=== PATIENT | male | born 1965 | race Caucasian/White ===

== ENCOUNTER → 2017-11-19 | Outpatient (CLI) | payer SELFPAY ==
--- NOTE | 2017-11-19 10:01 | XR ---
EXAMINATION TYPE: XR knee complete LT DATE OF EXAM: 11/19/2017 COMPARISON: NONE HISTORY: Pain TECHNIQUE: Four views are submitted. FINDINGS: Joint spaces are preserved. Osseous structures are intact. No acute fracture seen. Small amount of fluid in the suprapatellar bursa. IMPRESSION: 1. No acute fracture or dislocation. Small amount of fluid in the suprapatellar bursa. Correlate wit h MRI as clinically warranted.
== END | disposition home or self-care (01) ==
LOC: RADXRMAIN 09:41
PROVIDERS: ATTEND Physician Assistant
DX: M25.462 Effusion, left knee (principal)

== ENCOUNTER → 2021-02-28 | Outpatient (CLI) | payer OTHER ==
--- NOTE | 2021-02-28 14:57 | XR ---
EXAMINATION TYPE: XR chest 2V DATE OF EXAM: 02/28/2021 COMPARISON: Chest x-ray 08/29/2014 HISTORY: R06.00, shortness of breath TECHNIQUE: Frontal and lateral views of the chest are obtained. FINDINGS: There is no focal air space opacity, pleural effusion, or pneumothorax seen. The cardiac silhouette size is within normal limits. The osseous structures are intact. IMPRESSION: No acute cardiopulmonary process.
== END | disposition home or self-care (01) ==
LOC: RADXRMAIN 13:21
PROVIDERS: ATTEND Family Medicine
DX: R06.02 Shortness of breath (principal)
CPT/HCPCS: 71046

== ENCOUNTER 2021-08-24 02:44 | Observation (INO) | payer OTHER ==
--- NOTE | 2021-08-24 03:26 | XR ---
EXAMINATION TYPE: XR chest 2V DATE OF EXAM: 08/24/2021 COMPARISON: 02/28/2021 HISTORY: Chest pain TECHNIQUE: 2 views FINDINGS: Heart and mediastinum are normal. Lungs are clear. Diaphragm is normal. Bony thorax appears normal. IMPRESSION: Normal chest. No change.
[2021-08-24 03:35] LABS: Basophils # (A) 0.1 k/uL (0-0.2); Basophils % (A) 1 %; Eosinophils # (A) 0.3 k/uL (0-0.7); Eosinophils % (A) 3 %; HCT 43.1 % (39.0-53.0); HGB 15.4 gm/dL (13.0-17.5); Lymphocytes # (A) 2.1 k/uL (1.0-4.8); Lymphocytes % (A) 25 %; MCHC 35.7 g/dL (31.0-37.0); MCV 92.6 fL (80.0-100.0); Mean Platelet Volume 7.6; Monocytes # (A) 0.6 k/uL (0-1.0); Monocytes % (A) 7 %; Neutrophils # (A) 5.1 k/uL (1.3-7.7); Neutrophils % (A) 61 %; Platelet Count 240 k/uL (150-450); RBC 4.66 m/uL (4.30-5.90); RDW 12.7 % (11.5-15.5); WBC 8.3 k/uL (3.8-10.6)
[2021-08-24 03:40] LABS: Chloride 109 mmol/L (98-107); Potassium 4.1 mmol/L (3.5-5.1); Sodium 141 mmol/L (137-145)
[2021-08-24 03:41] LABS: ALT 54 U/L (4-49); AST 42 U/L (17-59); African American GFR (CKD) >90 (>60 ml/min/1.73 sqM); Albumin 4.3 g/dL (3.5-5.0); Alkaline Phosphatase 99 U/L (38-126); Anion Gap 13 mmol/L; Blood Urea Nitrogen 12 mg/dL (9-20); Calcium 9.4 mg/dL (8.4-10.2); Carbon Dioxide 19 mmol/L (22-30); Glucose 106 mg/dL (74-99); Magnesium 2.2 mg/dL (1.6-2.3); Non-African American GFR(CKD) >90 (>60 ml/min/1.73 sqM); Total Bilirubin 0.5 mg/dL (0.2-1.3); Total Protein 7.5 g/dL (6.3-8.2)
[2021-08-24 04:01] LABS: INR 0.9 (<1.2); Partial Thromboplastin Time 24.5 sec (22.0-30.0); Prothrombin Time 9.8 sec (9.0-12.0)
[2021-08-24] MEDS ORDERED: NITROGLYCERIN SL TABS 0.4 MG TAB SUBLINGUAL PRN (05:06)
[2021-08-24] MEDS ORDERED: MORPHINE SULFATE 4 MG/ML SYRINGE IV PRN (05:06)
[2021-08-24] MEDS ORDERED: HEPARIN SODIUM 1,000 UN/ML (10ML VL) IV ONE (05:06)
[2021-08-24] MEDS ORDERED: HEPARIN SOD,PORK IN 0.45% NACL 25,000 UNIT in 0.45% NACL 1 250ML.BAG IV SCH (05:15)
[2021-08-24] MEDS ORDERED: SODIUM CHLORIDE 0.9% 1,000 ML IV SCH (05:15)
[2021-08-24] MEDS ORDERED: ALBUTEROL NEBULIZED 2.5 MG/3 ML INHALATION PRN (06:06)
[2021-08-24] MEDS: NITROGLYCERIN OINT 1 INCH/GM PACKET TOPICAL SCH ×4 (06:56→23:22)
--- NOTE | 2021-08-24 07:07 | ED ---
Chest Pain HPI - General Chief Complaint: Chest Pain Stated Complaint: Chest Pain Time Seen by Provider: 08/24/21 02:46 Source: EMS Mode of arrival: EMS Limitations: no limitations - History of Present Illness Initial Comments: This patient is a 55-year-old man who presents with left arm pain that spread up his arm into the chest. Patient states that he has had a few episodes of this going back over the past 2 days. The patient's pain tonight was much more severe so he presents for evaluation. He did have some accompanying nausea. No fever or chills. No cough MD Complaint: chest pain Onset/Timin -: days(s) Pain Location: left chest Pain Radiation: LUE Severity: moderate Quality: aching Consistency: intermittent, now resolved Improves With: nothing Worsens With: nothing Anginal Symptoms: nausea Treatments Prior to Arrival: none - Related Data Home Medications Medication Instructions Recorded Confirmed Aspirin EC [Ecotrin Low Dose] 81 mg PO DAILY 08/24/21 08/24/21 Metoprolol Tartrate [Lopressor] 25 mg PO BID 08/24/21 08/24/21 lisinopriL [Zestril] 20 mg PO DAILY 08/24/21 08/24/21 Previous Rx's Medication Instructions Recorded Ezetimibe [Zetia] 10 mg PO DAILY 30 Days #30 tab 08/25/21 Nitroglycerin Sl Tabs [Nitrostat] 0.4 mg SUBLINGUAL Q5M PRN #25 tab 08/25/21 Prasugrel [Effient] 10 mg PO DAILY 30 Days #30 tab 08/25/21 Allergies Allergy/AdvReac Type Severity Reaction Status Date / Time No Known Allergies Allergy Verified 08/24/21 09:40 Review of Systems ROS Statement: Those systems with pertinent positive or pertinent negative responses have been documented in the HPI. ROS Other: All systems not noted in ROS Statement are negative. Constitutional: Denies: fever, chills, weakness Respiratory: Denies: cough, dyspnea, wheezes Cardiovascular: Reports: as per HPI, chest pain. Denies: palpitations, orthopnea, edema, syncope Gastrointestinal: Reports: nausea. Denies: abdominal pain, vomiting, diarrhea Genitourinary: Denies: dysuria, hematuria Musculoskeletal: Denies: back pain Skin: Denies: rash Neurological: Denies: headache, weakness, numbness EKG Findings - EKG Results: EKG: interpreted by KIRSTYD, sinus rhythm, normal axis, normal QRS, normal ST/T, no acute changes Past Medical History Past Medical History: Hyperlipidemia, Hypertension, Osteoarthritis (OA) Additional Past Medical History / Comment(s): SOB w/activity, head tremor History of Any Multi-Drug Resistant Organisms: None Reported Past Surgical History: Heart Catheterization With Stent, Orthopedic Surgery Additional Past Surgical History / Comment(s): 03-22-15 HEART CATH W/ STENT ,orbital fx. repair, hand surg. Past Anesthesia/Blood Transfusion Reactions: No Reported Reaction Date of Last Stent Placement:: 03-22-15 Past Psychological History: Depression Smoking Status: Former smoker Past Alcohol Use History: Occasional Past Drug Use History: Marijuana - Past Family History Mother Family Medical History: No Reported History General Exam Limitations: no limitations General appearance: alert, in no apparent distress Head exam: Present: atraumatic, normocephalic Eye exam: Present: normal appearance. Absent: scleral icterus, conjunctival injection ENT exam: Present: normal oropharynx Neck exam: Present: normal inspection, full ROM Respiratory exam: Present: normal lung sounds bilaterally. Absent: respiratory distress, wheezes, rales, rhonchi, stridor Cardiovascular Exam: Present: regular rate, normal rhythm, normal heart sounds. Absent: systolic murmur, diastolic murmur, rubs, gallop GI/Abdominal exam: Present: soft. Absent: distended, tenderness, guarding, rebound, rigid, mass Extremities exam: Present: normal inspection, normal capillary refill. Absent: pedal edema, calf tenderness Back exam: Present: normal inspection. Absent: CVA tenderness (R), CVA tenderness (L) Neurological exam: Present: alert Skin exam: Present: warm, dry, intact, normal color. Absent: rash Course Vital Signs 08/24/21 08/24/21 08/24/21 02:46 04:47 06:53 Temperature 97.6 F 98.6 F Pulse Rate 74 75 72 Respiratory 18 20 16 Rate Blood Pressure 151/103 129/94 136/89 O2 Sat by Pulse 95 97 95 Oximetry 08/24/21 08:49 Temperature 98.0 F Pulse Rate 80 Respiratory 16 Rate Blood Pressure 144/90 O2 Sat by Pulse 95 Oximetry Chest Pain MDM - MDM This patient is a 55-year-old man with previous CAD, who presents with episodes of left arm pain radiated into his chest over the past 2 days. On arrival he was symptom-free but he subsequently had an episode of pain here and is therefore started on heparin. Initial workup is negative. Critical Care Time Critical Care Time: Yes (30 minutes) Disposition Clinical Impression: Chest pain Disposition: ADMITTED IP TO THIS HOSP Condition: Fair
[2021-08-24] MEDS ORDERED: FENOFIBRATE 160 MG TAB PO SCH (07:30)
[2021-08-24] MEDS: PRASUGREL 10 MG TAB PO SCH (08:51)
[2021-08-24] MEDS ORDERED: LISINOPRIL-HCTZ 20-12.5 MG 1 EACH TAB PO SCH (09:00)
[2021-08-24] MEDS ORDERED: LIDOCAINE 1% INJ 10MG/ML (20 ML MDV) ONE (11:34)
[2021-08-24] MEDS ORDERED: .fentaNYL (PF) 50 MCG/ML 2 ML AMP ONE (11:36)
[2021-08-24] MEDS ORDERED: IV FLUID CONTINUATION 900 ML IV ONE (11:36)
[2021-08-24] MEDS ORDERED: ASPIRIN 325 MG TAB ONE (11:46)
[2021-08-24] MEDS ORDERED: ASPIRIN 325 MG TAB PO ONE (11:48)
[2021-08-24] MEDS ORDERED: .fentaNYL (PF) 50 MCG/ML 2 ML AMP IV ONE (11:57)
[2021-08-24] MEDS ORDERED: MIDAZOLAM 2 MG/2 ML VIAL IV ONE (11:57)
[2021-08-24] MEDS ORDERED: LIDOCAINE 1% INJ 10MG/ML (20 ML MDV) SQ ONE (11:59)
[2021-08-24] MEDS ORDERED: HEPARIN SODIUM 1,000 UN/ML (10ML VL) ONE (12:12)
--- NOTE | 2021-08-24 12:20 | CONS ---
CLAU wilkerson is a 55-year-old gentleman with history of coronary artery disease, status post angioplasty of LAD in 2015, and hypertension who presented to hospital complaining of chest pain. He describes it as a pressure, moderate to severe intensity at rest, associated with radiation to left arm. He came to hospital in the early hours of this morning was started on IV heparin, aspirin and nitro paste. He continues to have intermittent episodes of chest pain and left arm pain, especially with activity. Due to this, I advised him to undergo cardiac catheterization. His troponins are elevated at 0.05 and 0.07. Coronavirus test is negative. Hemoglobin is normal. Potassium is 4.1 and creatinine is 0.8. EKG shows sinus rhythm with nonspecific ST-T wave changes. The chest x-ray is normal. PAST MEDICAL HISTORY: Significant for coronary artery disease, status post angioplasty, hypertension. MEDICATIONS: Medications at home include aspirin, lisinopril, metoprolol. ALLERGIES: There are NO KNOWN DRUG ALLERGIES. FAMILY HISTORY: Negative for premature coronary artery disease. SOCIAL HISTORY: Negative for current smoking, EtOH abuse or drug abuse. REVIEW OF SYSTEMS: HEENT is unremarkable. CARDIAC: As described above. RESPIRATORY: Negative. GI: Negative. GENITOURINARY: Negative. ALLERGY/IMMUNOLOGY: Negative. SKIN: Negative. MUSCULOSKELETAL: Significant for arthritis. PSYCHOSOCIAL: Negative. ENDOCRINE: Negative. DERMATOLOGY: Negative. CONSTITUTIONAL: Negative. ONCOLOGICAL: Negative. MOBILE DESIGNER: Negative. Rest of the system review is not relevant. PHYSICAL EXAMINATION: Comfortable at rest. Vital signs are stable. There is no jugular venous distention. Carotid upstroke is normal. There is no bruit. Chest exam reveals diminished air entry at the bases. Heart exam reveals first and second heart sounds. No gallop. No murmur. Abdomen is soft, nontender. Examination of extremities did not reveal any edema. Peripheral pulses are felt. LABS: Potassium is 4.1, creatinine is 0.8. Troponins are negative. Hemoglobin is 15.4, platelet count is 240. ASSESSMENT: Acute non RZ-avgyxue-womprwrxq myocardial infarction. PLAN: Patient will undergo urgent catheterization with a view to performing angioplasty. MMODL / IJN: [id number] /
[2021-08-24] MEDS: HEPARIN SODIUM 1,000 UN/ML (10ML VL) IV ONE ×3 (12:24→13:22)
--- NOTE | 2021-08-24 12:50 | CC ---
CARDIAC CATHETERIZATION REPORT INDICATION: Acute djz-ZF-unjhdhd-elevation KS in a patient with known CAD, status post prior angioplasty of LAD. PROCEDURE NOTE: After obtaining informed consent, left heart catheterization and coronary angiogram were performed via the right femoral artery using standard Nicho catheters. The patient tolerated the procedure well without any obvious immediate complications. Patient received moderate conscious sedation. Total sedation time was 18 minutes. FINDINGS: HEMODYNAMICS: Left ventricular end-diastolic pressure is 14-16 mm. There is no significant gradient across the aortic valve. LEFT VENTRICULOGRAM: Left ventriculogram was not performed. ANGIOGRAPHIC DATA Left main coronary artery. Left main coronary artery is a normal-sized vessel and is free of stenosis. It divides into left anterior descending coronary artery and circumflex coronary artery. Circumflex coronary artery is a nondominant vessel and is free of stenosis. LAD was stented previously. While the stent itself is patent, proximal to the stent there is a 70% stenosis. Right coronary artery is a large dominant vessel that shows a focal 99% stenosis in the mid RCA. CONCLUSIONS: 1. Severe 99% stenosis involving mid RCA. 2. Stenosis of 70% proximal to the LAD stent. PLAN: Patient will undergo angioplasty of the right, and if it proceeds well, LAD angioplasty by Dr. Belén Fernandez, the on-call pastry cook apprentice. MMODL / IJN: [id number] /
[2021-08-24] MEDS ORDERED: PRASUGREL 10 MG TAB ONE ×2 (12:53)
[2021-08-24] MEDS ORDERED: PRASUGREL 10 MG TAB PO ONE (13:05)
[2021-08-24] MEDS ORDERED: IOPAMIDOL-370 125ML BTL INJ ONE (13:26)
[2021-08-24] MEDS: NITROGLYCERIN 1000MCG/10ML SYRINGE INTRACORON ONE ×2 (13:43→13:44)
[2021-08-24] MEDS ORDERED: HYDROmorphone 0.5 MG/0.5 ML SYRINGE IVP ONE (13:43)
[2021-08-24] MEDS ORDERED: IOPAMIDOL-370 100ML BTL INJ ONE (13:48)
[2021-08-24] MEDS ORDERED: RX INFO: IV CONTRAST WAS GIVEN 1 EACH MISC MISCELLANE PRN (14:32)
[2021-08-24] MEDS: SYMBICORT 160-4.5 MCG INHALER INHALATION SCH ×2 (15:44→19:11)
--- NOTE | 2021-08-24 17:02 | PTCA ---
PERCUTANEOUSTRANS CORORONARY ANGIOGRAPHY DATE OF SERVICE: 08/24/2021. PROCEDURE: 1. Percutaneous transluminal coronary angioplasty and stenting of mid right coronary artery, a heavily calcified vessel, with two drug-eluting stents. 2. Percutaneous transluminal coronary angioplasty and stenting of proximal LAD just proximal to the previously placed stent with a new drug-eluting stent. PERFORMED BY: Dr. Belén Fernandez. Moderate conscious sedation time was 87 minutes. Patient was administered Versed. Oxygen saturation, hemodynamics and EKG were monitored closely. CLINICAL INFORMATION: Mr. 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 He underwent stenting of proximal LAD performed by Dr. Garcia in 2015 with a 23 mm long 3.0 caliber drug-eluting stent. He came into the hospital with chest pain, had elevated troponin and a clinical picture of oym-PN-oyzhlxytd SC. He was advised cardiac cath after evaluation by Dr. Peoples. Study revealed that he had a 99% RCA stenosis _at____ the junction of proximal and middle one third, and prior to the stenosed area there was heavy calcification. He also had in the proximal LAD just proximal to the previous stent another 80% eccentric lesion best seen in the caudal projection. He was advised intervention that was performed in the same setting. PROCEDURE NOTE: Existing 6-Ukrainian introducer in the right femoral artery was used to perform the procedure. I used _ART____ 3.5 guide catheter to cannulate the right coronary artery. I advanced and placed a Whisper wire distally and tried to advance the balloon, but I had a lot of difficulty. A 2.5 caliber 12 mm balloon was advanced after one dilatation. The guide catheter position was suboptimal and I had a lot of difficulty getting back in because of a heavily calcified area in the proximal RCA proximal to the stenosis. I used a GuideLiner, and with this I was able to deploy the stent, which was a 3.5 caliber 23 mm long stent, in the proximal calcified area just before the lesion. After this I used another wire as a run-through wire, and over this run-through wire with the GuideLiner I deployed a 12 mm long 3.0 stent at the site of 99% stenosis with excellent result. I post-dilated the proximal stent with another 3.5 NC Trek balloon. Excellent angiographic result was achieved. The proximal calcified area prior to the 99% stenosis still had a very mild area of underexpansion; however, the flow was excellent and the site of 99% stenosis had a remarkably good result with good apposition of the stent angiographically. I then turned my attention to the LAD. Patient received additional units of intravenous heparin and his ACT was kept between 250 and 300. He also received 60 mg of prasugrel totally and also received aspirin in the ER. I then turned my attention to the LAD. A JL4 guide catheter was used to cannulate the left coronary artery. A run-through wire was used to cross the lesion. Without predilatation, a 12 mm long 3.25 caliber Xience stent was deployed at 14 atmospheres. This was then post-dilated with a 3.5 NC Trek balloon up to 13 atmospheres. Patient had chest pain and precordial ST elevation of significant pain was noted. He also had inferior ST elevation and chest pain with RCA dilatation. Excellent angiographic result without complication was achieved. The sheath was taken out and Angio-Seal device used to secure hemostasis and he was sent to the room in a stable condition. The results were discussed with the patient and his girlfriend, who was here. Patient's proximal RCA stent was rather difficult to open up, even at 3.5 caliber balloon. I discussed this with him and advised that he should be compliant with all his medications, with cessation of marijuana use, and Lipitor 80 mg was added along with dual antiplatelet therapy, beta leonel and lisinopril. Patient was sent to the telemetry unit. Excellent result was achieved without complication. MMYAYAL / RUKHSANAN: [id number] / SCOTT
[2021-08-24] MEDS: SODIUM CHLORIDE 0.9% 1,000 ML IV SCH (17:07)
[2021-08-24] MEDS: ATORVASTATIN 80 MG TAB PO SCH ×2 (17:07→20:45)
--- NOTE | 2021-08-24 18:21 | P.HPIM ---
History of Present Illness H&P Date: 08/24/21 Chief Complaint: Chest pain 55-year-old man with history of CAD who presents with left arm pain that spread up his arm into the chest. Patient states that he has had a few episodes of this going back over the past 2 days. The patient's pain tonight was much more severe so he presents for evaluation. He did have some accompanying nausea. No fever or chills. No cough On arrival to ED he was initially chest pain-free but subsequently had another episode which was not relieved with nitroglycerin; patient was started on IV heparin; initial troponin was 0.017 but subsequently trended up to 0.56 and 0.074; this was discussed with cardiology and they recommended taking patient to crown and bridge dental lab technician immediately Review of Systems REVIEW OF SYSTEMS: CONSTITUTIONAL: No fever, no malaise, no fatigue. HEENT: No recent visual problems or hearing problems. Denied any sore throat. CARDIOVASCULAR: No chest pain, orthopnea, PND, no palpitations, no syncope. PULMONARY: No shortness of breath, no cough, no hemoptysis. GASTROINTESTINAL: No diarrhea, no nausea, no vomiting, no abdominal pain. NEUROLOGICAL: No headaches, no weakness, no numbness. HEMATOLOGICAL: Denies any bleeding or petechiae. GENITOURINARY: Denies any burning micturition, frequency, or urgency. MUSCULOSKELETAL/RHEUMATOLOGICAL: Denies any joint pain, swelling, or any muscle pain. ENDOCRINE: Denies any polyuria or polydipsia. The rest of the 14-point review of systems is negative. Past Medical History Past Medical History: Hyperlipidemia, Hypertension, Osteoarthritis (OA) Additional Past Medical History / Comment(s): SOB w/activity, head tremor History of Any Multi-Drug Resistant Organisms: None Reported Past Surgical History: Heart Catheterization With Stent, Orthopedic Surgery Additional Past Surgical History / Comment(s): 03-22-15 HEART CATH W/ STENT ,orbital fx. repair, hand surg. Past Anesthesia/Blood Transfusion Reactions: No Reported Reaction Date of Last Stent Placement:: 03-22-15 Past Psychological History: Depression Smoking Status: Former smoker Past Alcohol Use History: Occasional Past Drug Use History: Marijuana - Past Family History Mother Family Medical History: No Reported History Medications and Allergies Home Medications Medication Instructions Recorded Confirmed Type Aspirin EC [Ecotrin Low Dose] 81 mg PO DAILY 08/24/21 08/24/21 History Metoprolol Tartrate [Lopressor] 25 mg PO BID 08/24/21 08/24/21 History lisinopriL [Zestril] 20 mg PO DAILY 08/24/21 08/24/21 History Allergies Allergy/AdvReac Type Severity Reaction Status Date / Time No Known Allergies Allergy Verified 08/24/21 09:40 Physical Exam Vitals: Vital Signs Temp Pulse Resp BP Pulse Ox 08/24/21 06:53 98.6 F 72 16 136/89 95 08/24/21 04:47 75 20 129/94 97 08/24/21 02:46 97.6 F 74 18 151/103 95 Intake and Output 08/23/21 08/24/21 08/24/21 22:59 06:59 14:59 Other: Weight 95.254 kg PHYSICAL EXAMINATION: GENERAL: The patient is alert and oriented x3, not in any acute distress. Well developed, well nourished. HEENT: Pupils are round and equally reacting to light. EOMI. No scleral icterus. No conjunctival pallor. Normocephalic, atraumatic. No pharyngeal erythema. No thyromegaly. CARDIOVASCULAR: S1 and S2 present. No murmurs, rubs, or gallops. PULMONARY: Chest is clear to auscultation, no wheezing or crackles. ABDOMEN: Soft, nontender, nondistended, normoactive bowel sounds. No palpable organomegaly. MUSCULOSKELETAL: No joint swelling or deformity. EXTREMITIES: No cyanosis, clubbing, or pedal edema. NEUROLOGICAL: Gross neurological examination did not reveal any focal deficits. SKIN: No rashes. Results CBC & Chem 7: 08/24/21 03:15 08/24/21 03:15 Labs: Abnormal Lab Results - Last 24 Hours (Table) 08/24/21 08/24/21 Range/Units 03:15 06:43 Chloride 109 H (98-107) mmol/L Carbon Dioxide 19 L (22-30) mmol/L Glucose 106 H (74-99) mg/dL ALT 54 H (4-49) U/L Troponin I 0.056 H* (0.000-0.034) ng/mL Assessment and Plan Assessment: 1. Chest pain/NSTEMI; we will trend and monitor troponin and EKG; continue with IV heparin per protocol; aspirin 81 mg daily; continue with home dose of beta blockers 2. Coronary artery disease; status post angioplasty; patient is currently on aspirin and metoprolol; not taking any statin therapy 3. Hypertension; continue with home dose of metoprolol 25 mg twice a day and lisinopril 20 mg daily DVT prophylaxis; SCDs/IV heparin CODE STATUS; full
[2021-08-24] MEDS: METOPROLOL TARTRATE 25 MG TAB PO SCH (20:45)
[2021-08-24] MEDS ORDERED: AMITRIPTYLINE HCL 25 MG TAB PO SCH (21:00)
[2021-08-25] MEDS: SODIUM CHLORIDE 0.9% 1,000 ML IV SCH (05:01)
[2021-08-25] MEDS: NITROGLYCERIN OINT 1 INCH/GM PACKET TOPICAL SCH ×2 (05:01→13:47)
[2021-08-25] MEDS: SYMBICORT 160-4.5 MCG INHALER INHALATION SCH (07:28)
[2021-08-25 07:48] LABS: Basophils % (A) 0 %; Eosinophils # (A) 0.2 k/uL (0-0.7); Eosinophils % (A) 2 %; HCT 41.9 % (39.0-53.0); HGB 14.5 gm/dL (13.0-17.5); Lymphocytes # (A) 1.9 k/uL (1.0-4.8); Lymphocytes % (A) 20 %; MCHC 34.7 g/dL (31.0-37.0); MCV 92.5 fL (80.0-100.0); Mean Platelet Volume 7.3; Monocytes # (A) 0.8 k/uL (0-1.0); Monocytes % (A) 8 %; Neutrophils # (A) 6.7 k/uL (1.3-7.7); Neutrophils % (A) 69 %; Platelet Count 227 k/uL (150-450); RBC 4.53 m/uL (4.30-5.90); RDW 12.1 % (11.5-15.5); WBC 9.7 k/uL (3.8-10.6)
[2021-08-25 08:02] LABS: African American GFR (CKD) >90 (>60 ml/min/1.73 sqM); Anion Gap 8 mmol/L; Blood Urea Nitrogen 12 mg/dL (9-20); Calcium 9.4 mg/dL (8.4-10.2); Carbon Dioxide 25 mmol/L (22-30); Chloride 105 mmol/L (98-107); Glucose 107 mg/dL (74-99); Non-African American GFR(CKD) >90 (>60 ml/min/1.73 sqM); Potassium 4.4 mmol/L (3.5-5.1); Sodium 138 mmol/L (137-145)
[2021-08-25] MEDS ORDERED: lisinopriL 20 MG TAB PO SCH (09:00)
[2021-08-25] MEDS ORDERED: ASPIRIN 325 MG TAB PO SCH (09:00)
[2021-08-25] MEDS ORDERED: ASPIRIN 81 MG PO SCH (09:00)
[2021-08-25 09:29] VITALS: BP 124/80; PULSE 67; RESP 18; TEMP 98
[2021-08-25] MEDS: METOPROLOL TARTRATE 25 MG TAB PO SCH (09:31)
[2021-08-25] MEDS: PRASUGREL 10 MG TAB PO SCH (09:31)
[2021-08-25] MEDS ORDERED: EZETIMIBE 10 MG TAB PO SCH (10:15)
[2021-08-25 11:25] LABS: Chol/HDL Ratio 8.31 Ratio; HDL Cholesterol 29.5 mg/dL (40.00-60.00); LDL Cholesterol,Calculated 153.9 mg/dL (0.0-131.0); VLDL Calculation 61.6 mg/dL (5.00-40.00)
--- NOTE | 2021-08-25 12:54 | P.PN ---
Subjective This is a 55-year-old male past medical history of hypertension, dyslipidemia, coronary artery disease status post PCI to LAD in 2014. Patient presented to the hospital on 08/24/2021 with complaints of chest pain. EKG revealed sinus rhythm with nonspecific STT wave changes. Troponins are elevated 0.05, 0.07. Patient underwent cardiac catheterization with Dr. Peoples which revealed 90% stenosis involving the mid RCA, stenosis of 70% proximal to LAD. Patient underwent PCI mid RCA 2 and PCI to proximal LAD with Dr. Fernandez on 08/24/21. Patient seen and examined at bedside with Dr. Garcia. Patient in no acute distress. Denies any chest pain, shortness of breath, lightheadedness or dizziness. Blood pressure is 124/80, heart rate 67, afebrile, maintaining saturations on room air. He's currently maintained on aspirin 81 mg daily, atorvastatin 80 mg nightly, lisinopril 20 mg daily, metoprolol tartrate 25 mg twice a day, Prasugrel 10 mg daily. Patient states he could not tolerate a statin due to weakness and back pain side effects. GENERAL: Well-appearing, well-nourished and in no acute distress. NECK: Supple without JVD or thyromegaly. LUNGS: Breath sounds clear to auscultation bilaterally. Respiration equal and unlabored. No wheezes, rales or rhonchi. HEART: Regular rate and rhythm without murmurs, rubs or gallops. S1 and S2 heard. EXTREMITIES: Normal range of motion, no edema. No clubbing or cyanosis. Peripheral pulses intact. SKIN: Right groin cath site clean dry intact no hematoma 2+ peripheral pulses ASSESSMENT NSTEMI s/p PCI to proximal LAD and mid RCA on 08/24/21 History of coronary artery disease status post PCI to LAD in 2014 Hypertension Dyslipidemia Intolerance to statin therapy PLAN Continue dual antiplatelet therapy with aspirin and Effient We'll discontinue atorvastatin and start Zetia 10 mg daily Continue lisinopril 20 mg daily and metoprolol tartrate 25 mg BID From cardiology perspective patient stable to be discharged home. Follow up with Dr. Garcia in 1 week. Nurse Practitioner note has been reviewed, I agree with a documented findings and plan of care. Patient was seen and examined. Objective - Vital Signs Vital signs: Vital Signs Temp 98 F 08/25/21 07:00 Pulse 67 08/25/21 07:00 Resp 18 08/25/21 07:00 BP 124/80 08/25/21 07:00 Pulse Ox 96 08/25/21 07:28 Intake & Output 08/24/21 08/25/21 08/25/21 18:59 06:59 18:59 Intake Total 351.344 630 Output Total 650 Balance 351.344 -20 Weight 95.254 kg Intake: IV 300 30 Invasive Line 2 30 Intake, IV Titration 51.344 600 Amount Heparin Sod,Pork in 0.45% 51.344 NaCl 25,000 unit In 0.45 % NaCl 1 250ml.bag @ 10.5 UNITS/KG/HR 10.002 mls/ hr IV .Q24H [facility] Rx#: [id number] Sodium Chloride 0.9% 1, 600 000 ml @ 75 mls/hr IV . [id number] [facility] Rx#:[id number] Output: Urine 650 Other: # Voids 1 - Labs CBC & Chem 7: 08/25/21 07:28 08/25/21 07:28 Labs: Abnormal Lab Results - Last 24 Hours (Table) 08/25/21 08/25/21 Range/Units 07:28 07:28 Glucose 107 H (74-99) mg/dL Triglycerides 308.00 H (0.00-149.00) mg/dL Cholesterol 245.00 H (0.00-200.00) mg/dL LDL Cholesterol, Calc 153.9 H (0.0-131.0) mg/dL VLDL Cholesterol, Calc 61.60 H (5.00-40.00) mg/dL HDL Cholesterol 29.50 L (40.00-60.00) mg/dL
--- NOTE | 2021-09-03 07:51 | P.DS ---
Providers Date of admission: 08/25/21 10:38 Expected date of discharge: 08/25/21 Attending physician: Riley Morton Consults: 08/24/21 05:06 Consult Physician Routine Consulting Provider: Abelardo Garcia Consult Reason/Comments: chest pain Do you want consulting provider notified?: Yes Primary care physician: Ilya [facility] Course: 55-year-old male past medical history of hypertension, dyslipidemia, coronary artery disease status post PCI to LAD in 2014. Patient presented to the hospital on 08/24/2021 with complaints of chest pain. EKG revealed sinus rhythm with nonspecific STT wave changes. Troponins are elevated 0.05, 0.07. Patient underwent cardiac catheterization with Dr. Peoples which revealed 90% stenosis involving the mid RCA, stenosis of 70% proximal to LAD. Patient underwent PCI mid RCA 2 and PCI to proximal LAD with Dr. Fernandez on 08/24/21. NSTEMI s/p PCI to proximal LAD and mid RCA on 08/24/21 History of coronary artery disease status post PCI to LAD in 2014 Hypertension Dyslipidemia Intolerance to statin therapy Patient evaluated by Cardiology with following recs; Continue dual antiplatelet therapy with aspirin and Effient We'll discontinue atorvastatin and start Zetia 10 mg daily Continue lisinopril 20 mg daily and metoprolol tartrate 25 mg BID From cardiology perspective patient stable to be discharged home. Patient Condition at Discharge: Fair Plan - Discharge Summary Discharge Rx Participant: Yes New Discharge Prescriptions: New Prasugrel [Effient] 10 mg PO DAILY 30 Days #30 tab Nitroglycerin Sl Tabs [Nitrostat] 0.4 mg SUBLINGUAL Q5M PRN #25 tab PRN Reason: Chest Pain Ezetimibe [Zetia] 10 mg PO DAILY 30 Days #30 tab Continue lisinopriL [Zestril] 20 mg PO DAILY Metoprolol Tartrate [Lopressor] 25 mg PO BID Aspirin EC [Ecotrin Low Dose] 81 mg PO DAILY Discharge Medication List Aspirin EC [Ecotrin Low Dose] 81 mg PO DAILY 08/24/21 [History] Metoprolol Tartrate [Lopressor] 25 mg PO BID 08/24/21 [History] lisinopriL [Zestril] 20 mg PO DAILY 08/24/21 [History] Ezetimibe [Zetia] 10 mg PO DAILY 30 Days #30 tab 08/25/21 [Rx] Nitroglycerin Sl Tabs [Nitrostat] 0.4 mg SUBLINGUAL Q5M PRN #25 tab 08/25/21 [Rx] Prasugrel [Effient] 10 mg PO DAILY 30 Days #30 tab 08/25/21 [Rx] Follow up Appointment(s)/Referral(s): Abelardo Garcia MD [STAFF PHYSICIAN] - 1 Week Ilya Barraza DO [Primary Care Provider] - 1 Week Patient Instructions/Handouts: Heart Catheterization (GEN) Discharge Disposition: HOME SELF-CARE
== END 2021-08-25 16:42 | disposition home or self-care (01) ==
LOC: EC 02:44 → 6NMEDSUR 05:06 → 3SCARD 10:34 → OBSVTOIN 08-25 10:38 → INTOOBSV 08-25 10:38 → UNDODISIN 08-25 16:42
PROVIDERS: ADMIT Hospitalist; ATTEND Hospitalist
PROC: 027035Z Dilation of Coronary Artery, One Artery with Two Drug-eluting Intraluminal Devices, Percutaneous Approach (ICD-10-PCS; principal; 2021-08-25)
PROC: 4A023N7 Measurement of Cardiac Sampling and Pressure, Left Heart, Percutaneous Approach (ICD-10-PCS; 2021-08-25)
PROC: B2111ZZ Fluoroscopy of Multiple Coronary Arteries using Low Osmolar Contrast (ICD-10-PCS; 2021-08-25)
DX: I21.4 Non-ST elevation (NSTEMI) myocardial infarction (principal); I25.10 Atherosclerotic heart disease of native coronary artery without angina pectoris; I10 Essential (primary) hypertension; E78.5 Hyperlipidemia, unspecified; M19.90 Unspecified osteoarthritis, unspecified site; R25.1 Tremor, unspecified; F32.A Depression, unspecified; Z20.822 Contact with and (suspected) exposure to COVID-19; Z79.02 Long term (current) use of antithrombotics/antiplatelets; Z79.82 Long term (current) use of aspirin; Z79.899 Other long term (current) drug therapy; Z88.8 Allergy status to other drugs, medicaments and biological substances; Z95.5 Presence of coronary angioplasty implant and graft; Z98.890 Other specified postprocedural states; Z87.891 Personal history of nicotine dependence
CPT/HCPCS: 96376; 96365; 96366; 99291; 36415; 94640 ×2; 94760; 93005; 93306; 93458; 80061; 80053; 80048; 83735; 84484; 85025 ×2; 85610; 85730; 87635; 71046; 99152; 99153 ×4; G0378 ×3; C9600; C1760; C1769 ×3; C1887 ×3; C1725 ×4; C1894; C1874 ×2; J2250; J2001; J3010; J1644 ×2; J1170; Q9967 ×2; 99285

== ENCOUNTER 2022-10-16 23:14 | Observation (INO) | payer OTHER ==
[2022-10-17 00:06] LABS: Basophils % (A) 0 %; Eosinophils # (A) 0.1 k/uL (0-0.7); Eosinophils % (A) 1 %; HCT 44.6 % (39.0-53.0); HGB 15.7 gm/dL (13.0-17.5); Lymphocytes # (A) 0.6 k/uL (1.0-4.8); Lymphocytes % (A) 7 %; MCH 31.9 pg (25.0-35.0); MCHC 35.2 g/dL (31.0-37.0); MCV 90.7 fL (80.0-100.0); Mean Platelet Volume 8.4; Monocytes # (A) 0.1 k/uL (0-1.0); Monocytes % (A) 1 %; Neutrophils # (A) 8.1 k/uL (1.3-7.7); Neutrophils % (A) 91 %; Platelet Count 195 k/uL (150-450); RBC 4.92 m/uL (4.30-5.90); RDW 12.4 % (11.5-15.5); WBC 8.9 k/uL (3.8-10.6)
--- NOTE | 2022-10-17 00:09 | XR ---
EXAMINATION TYPE: XR chest 2V DATE OF EXAM: 10/16/2022 COMPARISON: 08/24/2021 HISTORY: Chest pain TECHNIQUE: 2 views FINDINGS: There is no heart failure nor confluent pneumonic infiltrate. Costophrenic angles are clear . There are chest leads. Bony thorax is intact. IMPRESSION: No active cardiopulmonary disease.
[2022-10-17 00:14] LABS: INR 0.9 (<1.2); Partial Thromboplastin Time 26.8 sec (22.0-30.0); Prothrombin Time 10.1 sec (9.0-12.0)
[2022-10-17 00:26] LABS: ALT 44 U/L (4-49); AST 30 U/L (17-59); African American GFR (CKD) >90 (>60 ml/min/1.73 sqM); Albumin 4.5 g/dL (3.5-5.0); Alkaline Phosphatase 98 U/L (38-126); Anion Gap 13 mmol/L; Blood Urea Nitrogen 18 mg/dL (9-20); Calcium 9.3 mg/dL (8.4-10.2); Carbon Dioxide 19 mmol/L (22-30); Chloride 107 mmol/L (98-107); Glucose 225 mg/dL (74-99); Lipase 119 U/L (23-300); Magnesium 2.2 mg/dL (1.6-2.3); Non-African American GFR(CKD) >90 (>60 ml/min/1.73 sqM); Potassium 4.5 mmol/L (3.5-5.1); Sodium 139 mmol/L (137-145); Total Bilirubin 0.5 mg/dL (0.2-1.3); Total Protein 7.4 g/dL (6.3-8.2)
--- NOTE | 2022-10-17 00:48 | ED ---
Chest Pain HPI - General Chief Complaint: Chest Pain Stated Complaint: Chest Pain Source: patient Mode of arrival: ambulatory Limitations: no limitations - History of Present Illness Initial Comments: 56-year-old male with past medical history of atherosclerotic coronary artery disease status post 4 stents who presents to the emergency department with reported chest pain. States that 1 prior to hospital arrival he started having substernal chest pain with radiation into his left arm and left arm numbness. He states that he had eaten dinner with his and then returned home and was watching TV on the couch when the pain started. He states that the pain feels similar to when he had his previous heart attacks. He did take one nitro with alleviation of the pain. It then returned approximately 15 minutes later so he took a second nitro. The pain is completely resolved at this time. He has no associated shortness of breath, fevers, chills or cough. No ripping or tearing sensation to his back. He is supposed to take Effient as he had 3 stents placed in August of last year. States he's been out of this medication for approximately one month as he was not aware that he did not have refills. He denies any nausea or vomiting. No diaphoresis. No other alleviating, precipitating or modifying factors - Related Data Home Medications Medication Instructions Recorded Confirmed Aspirin EC [Ecotrin Low Dose] 81 mg PO DAILY 08/24/21 08/24/21 Metoprolol Tartrate [Lopressor] 25 mg PO BID 08/24/21 08/24/21 lisinopriL [Zestril] 20 mg PO DAILY 08/24/21 08/24/21 Previous Rx's Medication Instructions Recorded Ezetimibe [Zetia] 10 mg PO DAILY 30 Days #30 tab 08/25/21 Nitroglycerin Sl Tabs [Nitrostat] 0.4 mg SUBLINGUAL Q5M PRN #25 tab 08/25/21 Prasugrel [Effient] 10 mg PO DAILY 30 Days #30 tab 08/25/21 Allergies Allergy/AdvReac Type Severity Reaction Status Date / Time No Known Allergies Allergy Verified 10/16/22 23:24 Review of Systems ROS Statement: Those systems with pertinent positive or pertinent negative responses have been documented in the HPI. ROS Other: All systems not noted in ROS Statement are negative. EKG Findings - EKG Comments: EKG Findings:: EKG demonstrates sinus rhythm with a rate of 95. MN interval 182. QRS 94. QTC of 409. No acute ST segment elevations or depressions. EKG is interpreted by myself Past Medical History Past Medical History: Hyperlipidemia, Hypertension, Myocardial Infarction ([place]), Osteoarthritis (OA) Additional Past Medical History / Comment(s): SOB w/activity, head tremor History of Any Multi-Drug Resistant Organisms: None Reported Past Surgical History: Heart Catheterization With Stent, Orthopedic Surgery Additional Past Surgical History / Comment(s): 03-22-15 HEART CATH W/ STENT ,orbital fx. repair, hand surg. Past Anesthesia/Blood Transfusion Reactions: No Reported Reaction Date of Last Stent Placement:: 03-22-15 Past Psychological History: Depression Smoking Status: Former smoker Past Alcohol Use History: Occasional Past Drug Use History: Marijuana - Past Family History Mother Family Medical History: No Reported History General Exam Limitations: no limitations Course Vital Signs 10/16/22 10/16/22 10/17/22 23:21 23:36 01:11 Temperature 98.1 F 98.2 F 97.9 F Pulse Rate 98 92 90 Respiratory 22 16 16 Rate Blood Pressure 170/95 169/90 146/84 O2 Sat by Pulse 97 97 98 Oximetry Chest Pain MDM - MDM Upon arrival patient was placed into room 18. A thorough history and physical exam was performed. IV access was established laboratory studies are conducted. He is placed on continuous pulse ox and cardiac monitoring. A 12-lead EKG was obtained which demonstrates no signs of ST segment elevation at this time. EKG was interpreted by myself. Laboratory studies are reviewed and demonstrates a troponin of less than 0.012. It has not been 3 hours since the patient began having chest pain. Chest x-ray demonstrates no active cardio pulmonary disease. Results are discussed with the patient. As he has been off of his antiplate let and does have chest pain did recommend admission for cardiac consultation. I will trend the patient's troponins. He has remained pain-free throughout his stay in the emergency department. He was given an aspirin. Patient was agreeable to this plan and is currently awaiting a bed on the floor Disposition Clinical Impression: Chest pain Disposition: ADMITTED IP TO THIS HOSP Condition: Stable Is patient prescribed a controlled substance at d/c from ED?: No Referrals: Ilya Barraza DO [Primary Care Provider] - 1-2 days Time of Disposition: 02:12 Decision to Admit Reason: Admit from EC Decision Date: 10/17/22 Decision Time: 02:13
[2022-10-17] MEDS ORDERED: NALOXONE 0.4 MG/ML 1 ML VIAL IV PRN (02:13)
[2022-10-17] MEDS ORDERED: ASPIRIN 81 MG PO STA (02:29)
[2022-10-17 04:39] VITALS: RESP 18
--- NOTE | 2022-10-17 06:51 | P.HPIM ---
History of Present Illness H&P Date: 10/17/22 Chief Complaint: Chest pain 56-year-old male with coronary artery disease status post stents August 2021 Patient comes in reporting sudden onset left shoulder pain radiating to the left arm with some chest discomfort he rated it as 7-8 out of 10 started all of a sudden while resting doing nothing she felted like dull achy pain, not associated with any palpitations dizziness lightheadedness nausea vomiting profusely sweating or shortness of breath. He took a nitro pill and went away however it recurred after couple minutes for which she took another nitro and his suggested that he comes to the hospital for evaluation. Patient recalls that this was similar to what he experienced a year ago when he was diagnosed with coronary artery disease and had stents placed. Since then he's been taking Effient, for which she didn't get any new prescription and he's been out for about a month now. He reports that she's been in good health, he recently hurt his back and his been on bedrest for the past week yesterday he saw his primary care physician Dr. Barraza who gave him some shots in his back to help with the pain. Otherwise he denies any history of blood clots he denies any recent travel her hospital stay he denies any upper respiratory infection symptoms denies any nausea vomiting abdominal pain denies any changes in bowel or urinary habits EKG showed no acute ST changes troponins negative Review of Systems Pertinent positives as noted in HPI. All other systems were reviewed and are negative Past Medical History Past Medical History: Chest Pain / Angina, Hyperlipidemia, Hypertension, Myocardial Infarction ([place]), Osteoarthritis (OA) Additional Past Medical History / Comment(s): SOB w/activity, head tremor Last Myocardial Infarction Date:: 08/24/2021 History of Any Multi-Drug Resistant Organisms: None Reported Past Surgical History: Heart Catheterization With Stent, Orthopedic Surgery Additional Past Surgical History / Comment(s): 03-22-15 HEART CATH W/ STENTx1, 08/2021 x3 stents ,orbital fx. repair, hand surg. Past Anesthesia/Blood Transfusion Reactions: No Reported Reaction Date of Last Stent Placement:: 03-22-15 Past Psychological History: Depression Smoking Status: Former smoker Past Alcohol Use History: Heavy Past Drug Use History: Marijuana Additional Drug Use History / Comment(s): thc nightly to help with sleep - Past Family History Mother Family Medical History: Coronary Artery Disease (CAD) Medications and Allergies Home Medications Medication Instructions Recorded Confirmed Type Aspirin EC [Ecotrin Low Dose] 81 mg PO DAILY 08/24/21 08/24/21 History Metoprolol Tartrate [Lopressor] 25 mg PO BID 08/24/21 08/24/21 History lisinopriL [Zestril] 20 mg PO DAILY 08/24/21 08/24/21 History Ezetimibe [Zetia] 10 mg PO DAILY 30 Days #30 tab 08/25/21 Rx Nitroglycerin Sl Tabs [Nitrostat] 0.4 mg SUBLINGUAL Q5M PRN #25 tab 08/25/21 Rx Prasugrel [Effient] 10 mg PO DAILY 30 Days #30 tab 08/25/21 Rx Allergies Allergy/AdvReac Type Severity Reaction Status Date / Time No Known Allergies Allergy Verified 10/16/22 23:24 Physical Exam Vitals: Vital Signs Temp Pulse Pulse Resp BP BP Pulse Ox 10/17/22 03:35 97.3 F L 72 18 153/94 97 10/17/22 02:34 98 F 88 16 135/85 98 10/17/22 01:11 97.9 F 90 16 146/84 98 10/16/22 23:36 98.2 F 92 16 169/90 97 10/16/22 23:21 98.1 F 98 22 170/95 97 Intake and Output 10/16/22 10/16/22 10/17/22 14:59 22:59 06:59 Other: # Voids 2 Weight 95.254 kg Constitutional: No acute distress, conversant, pleasant Eyes: Anicteric sclerae, moist conjunctiva, Pupils equal round reactive to light ENMT: NC/AT Oropharynx clear, no erythema, or exudates Neck: Supple, no masses, or JVD No carotid bruits No thyromegaly Lungs: Clear to auscultation Clear to percussion Normal respiratory effort, no accessory muscle use Cardiovascular: Heart regular in rate and rhythm, No murmurs, gallops, or rubs No peripheral edema Abdominal: Soft Nontender, no guarding, rebound or rigidity Abdomen moving with respiration Normoactive bowel sounds No hepatomegaly, No splenomegaly No palpable mass No abdominal wall hernia noted Skin: Normal temperature, tone, texture, turgor No induration No subcutaneous nodules No rash, lesions No ulcers Extremities: No digital cyanosis No clubbing Pedal pulses intact and symmetrical Radial pulses intact and symmetrical No calf tenderness Psychiatric: Alert and oriented to person, place and time Appropriate affect fair judgement Neuro Muscles Strength 5/5 in all 4 extremities Sensation to light touch grossly present throughout Cranial nerves II-XII grossly intact No focal sensory deficits Lymphatics: no palpable cervical or supraclavicular , or inguinal lymph no celestine Results CBC & Chem 7: 10/16/22 23:46 10/16/22 23:46 Labs: Abnormal Lab Results - Last 24 Hours (Table) 10/16/22 10/16/22 Range/Units 23:46 23:46 Neutrophils # 8.1 H (1.3-7.7) k/uL Lymphocytes # 0.6 L (1.0-4.8) k/uL Carbon Dioxide 19 L (22-30) mmol/L Glucose 225 H (74-99) mg/dL Thrombosis Risk Factor Assmnt - Choose All That Apply Any of the Below Risk Factors Present?: Yes Each Factor Represents 1 point: Age 41-60 years, Obesity (BMI >25) Other Risk Factors: No Other congenital or acquired thrombophilia - If yes, enter type in comment: No Thrombosis Risk Factor Assessment Total Risk Factor Score: 2 Thrombosis Risk Factor Assessment Level: Low Risk Assessment and Plan Assessment: atypical chest pain rule out ACS EKG no acute changes CXR no acute pathology trops negative X2 site leasing agent monitor vital signs ASA, statin cardiology consult pain control Await cardiology recommendations regarding effient Chronic conditions Hypertension resume lisinopril and metoprolol Hyperlipidemia resume zetia DVT prophylaxis heparin subcu 3 times a day Full code
[2022-10-17 07:52] VITALS: BP 135/78; PULSE 89; TEMP 97.6
[2022-10-17] MEDS ORDERED: HEPARIN SODIUM,PORCINE/PF 5,000 UNIT/0.5 ML SYRINGE SQ SCH (08:00)
--- NOTE | 2022-10-17 08:43 | P.CRDCN ---
History of Present Illness Consult date: 10/17/22 Chief complaint: Chest pain History of present illness: The patient is a pleasant 56-year-old gentleman with a past medical history significant for CAD with prior stenting of the RCA and LAD as well as hypertension and dyslipidemia presented to the hospital complaining of chest discomfort. The patient was in his usual state of health until yesterday when he was sitting at home and suddenly started experiencing discomfort in the left upper chest as a sharp kind of discomfort radiated to his left arm. No associated symptoms of shortness of breath or sweating or dizziness or lightheaded this or presyncope or syncope or any feeling of heart racing or fluttering. The discomfort lasted for few minutes and resolved. He took nitroglycerin before it was resolved. The discomfort according to him is totally different from what he had before he underwent stenting a year ago. He was ruled out for acute coronary event. The EKG showed sinus rhythm with no significant ST or T-wave abnormalities. The chest x-ray did not show any acute abnormalities as well. He is chest pain-free. He would like to go home. From a perivascular standpoint of view, I'm going to get the patient up and around and physically active and if he is asymptomatic he potentially can be discharged home and I will see him in the office in a few days for possible stenosis as an outpatient. Past Medical History Past Medical History: Chest Pain / Angina, Hyperlipidemia, Hypertension, Myocardial Infarction ([place]), Osteoarthritis (OA) Additional Past Medical History / Comment(s): SOB w/activity, head tremor Last Myocardial Infarction Date:: 08/24/2021 History of Any Multi-Drug Resistant Organisms: None Reported Past Surgical History: Heart Catheterization With Stent, Orthopedic Surgery Additional Past Surgical History / Comment(s): 03-22-15 HEART CATH W/ STENTx1, 08/2021 x3 stents ,orbital fx. repair, hand surg. Past Anesthesia/Blood Transfusion Reactions: No Reported Reaction Date of Last Stent Placement:: 03-22-15 Past Psychological History: Depression Smoking Status: Former smoker Past Alcohol Use History: Heavy Past Drug Use History: Marijuana Additional Drug Use History / Comment(s): thc nightly to help with sleep - Past Family History Mother Family Medical History: Coronary Artery Disease (CAD) Medications and Allergies Home Medications Medication Instructions Recorded Confirmed Type Aspirin EC [Ecotrin Low Dose] 81 mg PO DAILY 08/24/21 08/24/21 History Metoprolol Tartrate [Lopressor] 25 mg PO BID 08/24/21 08/24/21 History lisinopriL [Zestril] 20 mg PO DAILY 08/24/21 08/24/21 History Ezetimibe [Zetia] 10 mg PO DAILY 30 Days #30 tab 08/25/21 Rx Nitroglycerin Sl Tabs [Nitrostat] 0.4 mg SUBLINGUAL Q5M PRN #25 tab 08/25/21 Rx Prasugrel [Effient] 10 mg PO DAILY 30 Days #30 tab 08/25/21 Rx Allergies Allergy/AdvReac Type Severity Reaction Status Date / Time No Known Allergies Allergy Verified 10/16/22 23:24 Physical Exam Vitals: Vital Signs Temp Pulse Pulse Resp BP BP Pulse Ox 10/17/22 07:00 97.6 F 89 18 135/78 97 10/17/22 03:35 97.3 F L 72 18 153/94 97 10/17/22 02:34 98 F 88 16 135/85 98 10/17/22 01:11 97.9 F 90 16 146/84 98 10/16/22 23:36 98.2 F 92 16 169/90 97 10/16/22 23:21 98.1 F 98 22 170/95 97 Intake and Output 10/16/22 10/17/22 10/17/22 22:59 06:59 14:59 Other: # Voids 2 Weight 95.254 kg - Constitutional General appearance: no acute distress - Respiratory Respiratory: bilateral: CTA - Cardiovascular Rhythm: regular Heart sounds: normal: S1, S2 Results 10/16/22 23:46 10/16/22 23:46 Cardiac Enzymes 10/16/22 10/16/22 10/17/22 Range/Units 23:46 23:46 04:25 AST 30 (17-59) U/L Troponin I <0.012 <0.012 (0.000-0.034) ng/mL 10/17/22 Range/Units 07:17 AST (17-59) U/L Troponin I <0.012 (0.000-0.034) ng/mL Coagulation 10/16/22 Range/Units 23:46 PT 10.1 (9.0-12.0) sec APTT 26.8 (22.0-30.0) sec CBC 10/16/22 Range/Units 23:46 WBC 8.9 (3.8-10.6) k/uL RBC 4.92 (4.30-5.90) m/uL Hgb 15.7 (13.0-17.5) gm/dL Hct 44.6 (39.0-53.0) % Plt Count 195 (150-450) k/uL Comprehensive Metabolic Panel 10/16/22 Range/Units 23:46 Sodium 139 (137-145) mmol/L Potassium 4.5 (3.5-5.1) mmol/L Chloride 107 (98-107) mmol/L Carbon Dioxide 19 L (22-30) mmol/L BUN 18 (9-20) mg/dL Creatinine 0.81 (0.66-1.25) mg/dL Glucose 225 H (74-99) mg/dL Calcium 9.3 (8.4-10.2) mg/dL AST 30 (17-59) U/L ALT 44 (4-49) U/L Alkaline Phosphatase 98 (38-126) U/L Total Protein 7.4 (6.3-8.2) g/dL Albumin 4.5 (3.5-5.0) g/dL Current Medications Generic Name Dose Route Start Last Admin Trade Name Freq PRN Reason Stop Dose Admin Aspirin 81 mg 10/17/22 09:00 Aspirin 81 Mg PO DAILY [facility] Ezetimibe 10 mg 10/17/22 09:00 Ezetimibe 10 Mg Tab PO DAILY [facility] Heparin Sodium (Porcine) 5,000 unit 10/17/22 08:00 Heparin Sodium,Porcine/Pf 5,000 Unit/0.5 Ml Syringe SQ Q8HR [facility] Lisinopril 20 mg 10/17/22 09:00 Lisinopril 20 Mg Tab PO DAILY [facility] Metoprolol Tartrate 25 mg 10/17/22 09:00 Metoprolol Tartrate 25 Mg Tab PO BID [facility] Naloxone HCl 0.2 mg 10/17/22 02:13 Naloxone 0.4 Mg/Ml 1 Ml Vial IV Q2M PRN Opioid Reversal Intake and Output 10/16/22 10/17/22 10/17/22 22:59 06:59 14:59 Other: # Voids 2 Weight 95.254 kg 10/16/22 23:46 10/16/22 23:46 Assessment and Plan Assessment: Assessment Atypical/noncardiac chest pain CAD with prior stenting Hypertension Dyslipidemia Plan Continue the current medical regimen Try to get the patient physically active and he is asymptomatic he can be discharged home Follow-up with the patient as an outpatient
[2022-10-17] MEDS ORDERED: EZETIMIBE 10 MG TAB PO SCH (09:00)
[2022-10-17] MEDS ORDERED: ASPIRIN 81 MG PO SCH (09:00)
[2022-10-17] MEDS ORDERED: METOPROLOL TARTRATE 25 MG TAB PO SCH (09:00)
[2022-10-17] MEDS ORDERED: lisinopriL 20 MG TAB PO SCH (09:00)
--- NOTE | 2022-10-17 12:51 | P.DS ---
Providers Date of admission: 10/17/22 02:29 Expected date of discharge: 10/17/22 Attending physician: Edilberto Small MD Consults: 10/17/22 02:13 Consult Physician Urgent Consulting Provider: [facility] Consult Reason/Comments: acute chest pain, hx ascad Do you want consulting provider notified?: Yes Primary care physician: Ilya [facility] Course: Atypical chest pain Hypertension Hyperlipidemia 56-year-old man with medical history of hypertension, hyperlipidemia presented with atypical chest pain. In the emergency room, patient is afebrile, 170/95, heart rate 98, 97% on room air. CBC was unremarkable. Chemistries were unremarkable. Liver function tests were unremarkable. Troponin was less than 0.012 and trended to be less than 0.0123. Coags were unremarkable. EKG showed normal sinus rhythm. Chest x-ray showed no acute process. Patient was seen in consultation by cardiology, and expressed that he wanted to go home without any further workup. Patient was cleared by cardiology to follow-up in clinic. Patient was subsequently discharged with no medication changes as well as instructions to follow-up with primary care physician as well as cardiology. Gen: awake, alert HEENT: normocephalic, atraumatic, good hearing acuity, moist mucous membranes Resp: good air exchange, breathing comfortably with no accessory muscle use CVS: good distal perfusion x 4, GI: soft, NTTP, ND : no SPT, no CVAT, myles catheter not present MSK: no pitting edema, no clubbing Neuro: non-focal, moving all extremities Psych: cooperative, euthymic mood Patient Condition at Discharge: Good Plan - Discharge Summary New Discharge Prescriptions: Continue Nitroglycerin Sl Tabs [Nitrostat] 0.4 mg SL Q5M PRN PRN Reason: Chest Pain lisinopriL [Zestril] 20 mg PO DAILY Metoprolol Tartrate [Lopressor] 25 mg PO BID Aspirin EC [Ecotrin Low Dose] 81 mg PO DAILY Prasugrel [Effient] 10 mg PO DAILY 30 Days #30 tab Ezetimibe [Zetia] 10 mg PO DAILY 30 Days #30 tab Discharge Medication List Aspirin EC [Ecotrin Low Dose] 81 mg PO DAILY 08/24/21 [History] Metoprolol Tartrate [Lopressor] 25 mg PO BID 10/17/21 [History] lisinopriL [Zestril] 20 mg PO DAILY 08/24/21 [History] Ezetimibe [Zetia] 10 mg PO DAILY 30 Days #30 tab 08/25/21 [Rx] Prasugrel [Effient] 10 mg PO DAILY 30 Days #30 tab 08/25/21 [Rx] Nitroglycerin Sl Tabs [Nitrostat] 0.4 mg SL Q5M PRN 10/17/22 [History] Follow up Appointment(s)/Referral(s): Abelardo Garcia MD [STAFF PHYSICIAN] - 1 Week Ilya Barraza DO [Primary Care Provider] - 1-2 days Discharge Disposition: HOME SELF-CARE
== END 2022-10-17 13:20 | disposition home or self-care (01) ==
LOC: EC 23:14 → 6NMEDSUR 10-17 02:29
PROVIDERS: ADMIT Internal Medicine; ATTEND Internal Medicine
DX: R07.89 Other chest pain (principal); I25.10 Atherosclerotic heart disease of native coronary artery without angina pectoris; I10 Essential (primary) hypertension; E78.5 Hyperlipidemia, unspecified; M19.90 Unspecified osteoarthritis, unspecified site; F32.A Depression, unspecified; I25.2 Old myocardial infarction; Z87.891 Personal history of nicotine dependence; Z95.5 Presence of coronary angioplasty implant and graft; Z79.02 Long term (current) use of antithrombotics/antiplatelets; Z79.82 Long term (current) use of aspirin; Z79.899 Other long term (current) drug therapy; Z82.49 Family history of ischemic heart disease and other diseases of the circulatory system
CPT/HCPCS: 99285; 36415; 93005; 83880; 80053; 83690; 83735; 84484 ×2; 85025; 85610; 85730; 71046; G0378

== ENCOUNTER 2023-02-06 09:41 | Inpatient (IN) | payer OTHER ==
[2023-02-06] MEDS ORDERED: SODIUM CHLORIDE 0.9% 500 ML 500 ML IV STA (09:47)
[2023-02-06] MEDS ORDERED: NITROGLYCERIN-D5W PMX 50 MG in DEXTROSE/WATER 1 250ML.BAG IV ONE (09:47)
[2023-02-06] MEDS ORDERED: HEPARIN SODIUM 1,000 UN/ML (10ML VL) IV ONE (09:47)
[2023-02-06] MEDS ORDERED: MORPHINE SULFATE 2 MG/ML SYRINGE IVP STA (09:52)
[2023-02-06] MEDS ORDERED: VERAPAMIL 2.5 MG/ML 2 ML AMP ONE (09:54)
[2023-02-06] MEDS ORDERED: LIDOCAINE 1% INJ 10MG/ML (20 ML MDV) ONE (09:54)
--- NOTE | 2023-02-06 09:57 | ED ---
General Adult HPI - General Stated complaint: STEMI Time Seen by Provider: 02/06/23 09:41 Source: patient, EMS, RN notes reviewed, old records reviewed - History of Present Illness Initial comments: This is a 57-year-old male who presented to the emergency department with chest pain. Patient was in route for over 20 minutes EKG was transmitted early to us and we called a STEMI overhead. Patient stated the pain started earlier in the day he stated that he had a heart attack in the past and had multiple stent placements. Patient states he has a history of high blood pressure high cholesterol. Patient states the pain significantly causes shortness of breath per patient got nitroglycerin on the way and it did not relieve his pain. Patient also was somewhat diaphoretic. Patient was nauseous on the windshield Zofran. On the way and he also had aspirin and fentanyl. Patient states the pain continues at this time. Patient denies any recent fever chills or cough per patient denies any abdominal pain. - Related Data Home Medications Medication Instructions Recorded Confirmed Aspirin EC [Ecotrin Low Dose] 81 mg PO DAILY 08/24/21 10/17/22 Metoprolol Tartrate [Lopressor] 25 mg PO BID 08/24/21 10/17/22 lisinopriL [Zestril] 20 mg PO DAILY 08/24/21 10/17/22 Nitroglycerin Sl Tabs [Nitrostat] 0.4 mg SL Q5M PRN 10/17/22 10/17/22 Previous Rx's Medication Instructions Recorded Ezetimibe [Zetia] 10 mg PO DAILY 30 Days #30 tab 08/25/21 Prasugrel [Effient] 10 mg PO DAILY 30 Days #30 tab 08/25/21 Allergies Allergy/AdvReac Type Severity Reaction Status Date / Time No Known Allergies Allergy Verified 10/17/22 11:50 Review of Systems ROS Statement: Those systems with pertinent positive or pertinent negative responses have been documented in the HPI. ROS Other: All systems not noted in ROS Statement are negative. Past Medical History Past Medical History: Hyperlipidemia, Hypertension, Myocardial Infarction ([place]), Osteoarthritis (OA) Additional Past Medical History / Comment(s): SOB w/activity, head tremor Last Myocardial Infarction Date:: 08/24/2021 History of Any Multi-Drug Resistant Organisms: None Reported Past Surgical History: Heart Catheterization With Stent, Orthopedic Surgery Additional Past Surgical History / Comment(s): 03-22-15 HEART CATH W/ STENT ,o rbital fx. repair, hand surg. Past Anesthesia/Blood Transfusion Reactions: No Reported Reaction Date of Last Stent Placement:: 03-22-15 Past Psychological History: Depression Smoking Status: Former smoker Past Alcohol Use History: Occasional Past Drug Use History: Marijuana - Past Family History Mother Family Medical History: No Reported History General Exam - General Exam Comments Initial Comments: GENERAL: Patient is well-developed and well-nourished. Patient is nontoxic and well- hydrated and is in moderate distress. ENT: Neck is soft and supple. No significant lymphadenopathy is noted. Oropharynx is clear. Moist mucous membranes. Neck has full range of motion without eliciting any pain. EYES: The sclera were anicteric and conjunctiva were pink and moist. Extraocular movements were intact and pupils were equal round and reactive to light. Eyelids were unremarkable. PULMONARY: Unlabored respirations. Good breath sounds bilaterally. No audible rales rhonchi or wheezing was noted. CARDIOVASCULAR: There is a regular rate and rhythm without any murmurs gallops or rubs. ABDOMEN: Soft and nontender with normal bowel sounds. No palpable organomegaly was noted. There is no palpable pulsatile mass. SKIN: Skin is clear with no lesions or rashes and otherwise unremarkable. NEUROLOGIC: Patient is alert and oriented x3. Cranial nerves II through XII are grossly intact. Motor and sensory are also intact. Normal speech, volume and content. Symmetrical smile. MUSCULOSKELETAL: Normal extremities with adequate strength and full range of motion. LYMPHATICS: No significant lymphadenopathy is noted PSYCHIATRIC: Normal psychiatric evaluation. Medical Decision Making - Medical Decision Making EKG was interpreted by myself shows a sinus rhythm at 74 bpm AR interval 106 QRS is 86 QT interval 371 QTC is 398. Patient's EKG shows ST segment elevation in leads 1-3 and aVF as well as V4 V5 and V6. Patient has ST segment depression in 1 to an aVR. This is indicative of acute [place]. Was pt. sent in by a medical professional or institution (, PA, VACUUM CLEANER ASSEMBLER, urgent care, hospital, or penitentiary...) When possible be specific @ -No Did you speak to anyone other than the patient for history (EMS, parent, family, police, friend...)? What history was obtained from this source @ -EMS gave quite a bit of the history Did you review nursing and triage notes (agree or disagree)? Why? @ -I reviewed and agree with nursing and triage notes Were old charts reviewed (outside hosp., previous admission, EMS record, old EKG, old radiological studies, urgent care reports/EKG's, penitentiary records)? Report findings @ -I reviewed prior EKGs prior lab work and compared to today's results Differential Diagnosis (chest pain, altered mental status, abdominal pain women, abdominal pain men, vaginal bleeding, weakness, fever, dyspnea, syncope, headache, dizziness, GI bleed, back pain, seizure, CVA, palpatations, mental health, musculoskeletal)? @ -Differential Chest Pain: Stable Angina, Unstable Angina, STEMI, NSTEMI Aortic Dissection, Pneumothorax, Musculoskeletal, Esophageal Spasm GERD, Cholecystitis, Pancreatitis, Zoster, this is not meant to be an all-inclusive list. EKG interpreted by me (3pts min.). @ -As above X-rays interpreted by me (1pt min.). @ -None done CT interpreted by me (1pt min.). @ -None done U/S interpreted by me (1pt. min.). @ -None done What testing was considered but not performed or refused? (CT, X-rays, U/S, labs)? Why? @ -None What meds were considered but not given or refused? Why? @ -None Did you discuss the management of the patient with other professionals (professionals i.e. , PA, VACUUM CLEANER ASSEMBLER, lab, RT, psych nurse, social media intern, shot fireman, teacher, district fire management officer, director of casework department)? Give summary @ -I spoke with Dr. Cosme prior to the patient's arrival and once the patient arrived he was done the emergency department seeing the patient. Was smoking cessation discussed for >3mins.? @ -No Was critical care preformed (if so, how long)? @ -30 minutes Were there social determinants of health that impacted care today? How? (Homelessness, low income, unemployed, alcoholism, drug addiction, transportation, low edu. Level, literacy, decrease access to med. care, group home, rehab)? @ -No Was there de-escalation of care discussed even if they declined (Discuss DNR or withdrawal of care, Hospice)? DNR status @ -No What co-morbidities impacted this encounter? (DM, HTN, Smoking, COPD, CAD, Cancer, CVA, ARF, Chemo, Hep., AIDS, mental health diagnosis, sleep apnea, morbid obesity)? @ -None Was patient admitted / discharged? Hospital course, mention meds given and route, prescriptions, significant lab abnormalities, going to OR and other pertinent info. @ -Patient came in with significant chest pain and an obvious STEMI on the EKG. Dr. Cosme was down into the emergency department seeing the patient quickly. Patient was given heparin and morphine for the pain. I also ordered a nitroglycerin drip and a fluid bolus however patient went up to the catheter prior to receiving those. I wrote admitting orders after I spoke with Sheet Undiagnosed new problem with uncertain prognosis? @ -No Drug Therapy requiring intensive monitoring for toxicity (Heparin, Nitro, Insulin, Cardizem)? @ -No Were any procedures done? @ -No Diagnosis/symptom? @ -STEMI Acute, or Chronic, or Acute on Chronic? @ -Acute Uncomplicated (without systemic symptoms) or Complicated (systemic symptoms)? @ -Complicated Side effects of treatment? @ -No Exacerbation, Progression, or Severe Exacerbation? @ -No Poses a threat to life or bodily function? How? (Chest pain, [place], [place], pneumonia, PE, COPD, DKA, ARF, appy, cholecystitis, CVA, Diverticulitis, Homicidal, Suicidal, threat to staff... and all critical care pts) @ -Yes this could lead to significant ejection fraction problems and poor perfusion and end organ dysfunction Critical Care Time Critical Care Time: Yes Total Critical Care Time: 30 Disposition Clinical Impression: STEMI (ST elevation myocardial infarction) Disposition: ADMITTED IP TO THIS HOSP Condition: Good Referrals: Ilya Barraza DO [Primary Care Provider] - 1-2 days Time of Disposition: 10:00
[2023-02-06] MEDS ORDERED: SODIUM CHLORIDE 0.9% 500 ML 500 ML IV ONE (10:00)
[2023-02-06] MEDS ORDERED: LIDOCAINE 1% INJ 10MG/ML (30 ML VIAL-PF) SQ ONE (10:05)
[2023-02-06] MEDS ORDERED: VERAPAMIL SYRINGE (5 MG/10 ML) INTRAARTER ONE (10:07)
[2023-02-06] MEDS ORDERED: ATORVASTATIN 80 MG TAB PO STA (10:08)
[2023-02-06] MEDS ORDERED: MIDAZOLAM 2 MG/2 ML VIAL IV ONE (10:10)
[2023-02-06] MEDS ORDERED: HEPARIN SODIUM 1,000 UN/ML (10ML VL) ONE (10:14)
[2023-02-06] MEDS: HEPARIN SODIUM 1,000 UN/ML (10ML VL) IV ONE ×2 (10:15→11:22)
[2023-02-06] MEDS ORDERED: PRASUGREL 10 MG TAB PO ONE (10:16)
[2023-02-06] MEDS ORDERED: PRASUGREL 10 MG TAB ONE (10:16)
[2023-02-06] MEDS ORDERED: METOPROLOL TARTRATE 5 MG/5 ML VIAL IVP ONE (10:23)
[2023-02-06] MEDS: METOPROLOL TARTRATE 5 MG/5 ML VIAL IVP ONE ×2 (10:24→10:46)
--- NOTE | 2023-02-06 10:29 | P.EPPROC ---
- EP Procedure Note Electrophysiology Procedure Note: This is Dr. Cosme dictating a consult on this patient The patient was interviewed and examined IMPRESSION / ASSESSMENT: Inferior posterior TX, ST elevation, acute, pain began around 6:30 AM History of coronary artery disease status post stenting in the past Nondiabetic nonsmoker PLAN: Proceed with coronary angiography and coronary intervention Atorvastatin 80 mg daily, aspirin, IV heparin and nitroglycerin given in the ER HPI Patient woke up this morning with chest discomfort at around 6:30 AM I received a call from the ER stating that the patient was being brought in for an ST elevation TX, inferior, and was 20 minutes out When he arrived he was in severe pain and his twelve-lead EKG showed ST elevations in the inferior leads, possibly lead 2 ST elevations higher than lead 3 with posterior extension Blood pressure elevated heart rate normal ROS: No fever chills or rigors, no cough, phlegm or expectoration, no nausea, vomiting or diarrhea, no hematuria, dysuria, no musculoskeletal complaints, no strokes or seizures, no skin lesions. EXAMINATION: 164 124 mmHg pulse rate in the 70s Breath sounds are clear no rhonchi no crackles Normal heart sounds no murmurs no gallops Soft abdomen REVIEW OF LABS, ECG & MEDICAL DATA Smokes marijuana And sleep at night Home medications include Zestril Effient metoprolol Zetia and aspirin Nonsmoker Nondiabetic History of coronary artery disease status post stenting on 2 separate occasions, the last time was 2 years back
[2023-02-06] MEDS ORDERED: IOPAMIDOL-370 125ML BTL INJ ONE (10:47)
[2023-02-06] MEDS ORDERED: fentaNYL (PF) 50 MCG/ML 2 ML AMP ONE (10:57)
[2023-02-06] MEDS ORDERED: fentaNYL (PF) 50 MCG/ML 2 ML AMP IV ONE (10:58)
[2023-02-06 11:20] LABS: Basophils % (A) 0 %; Eosinophils # (A) 0.2 k/uL (0-0.7); Eosinophils % (A) 1 %; HCT 42.2 % (39.0-53.0); HGB 14.9 gm/dL (13.0-17.5); Lymphocytes # (A) 1.2 k/uL (1.0-4.8); Lymphocytes % (A) 9 %; MCH 32.3 pg (25.0-35.0); MCHC 35.3 g/dL (31.0-37.0); MCV 91.4 fL (80.0-100.0); Mean Platelet Volume 7.3; Monocytes # (A) 0.7 k/uL (0-1.0); Monocytes % (A) 5 %; Neutrophils # (A) 11.5 k/uL (1.3-7.7); Neutrophils % (A) 84 %; Platelet Count 248 k/uL (150-450); RBC 4.61 m/uL (4.30-5.90); RDW 12.1 % (11.5-15.5); WBC 13.8 k/uL (3.8-10.6)
[2023-02-06] MEDS ORDERED: IOPAMIDOL-370 100ML BTL INJ ONE (11:26)
[2023-02-06 11:36] LABS: INR 1.1 (<1.2); Partial Thromboplastin Time 78.5 sec (22.0-30.0); Prothrombin Time 11.2 sec (9.0-12.0)
[2023-02-06 11:37] LABS: ALT 64 U/L (4-49); AST 88 U/L (17-59); African American GFR (CKD) >90 (>60 ml/min/1.73 sqM); Albumin 4.1 g/dL (3.5-5.0); Alkaline Phosphatase 104 U/L (38-126); Anion Gap 8 mmol/L; Blood Urea Nitrogen 12 mg/dL (9-20); Calcium 9.4 mg/dL (8.4-10.2); Carbon Dioxide 25 mmol/L (22-30); Chloride 105 mmol/L (98-107); Glucose 109 mg/dL (74-99); Non-African American GFR(CKD) >90 (>60 ml/min/1.73 sqM); Potassium 5.3 mmol/L (3.5-5.1); Sodium 138 mmol/L (137-145); Total Bilirubin 0.6 mg/dL (0.2-1.3); Total Protein 7.1 g/dL (6.3-8.2)
[2023-02-06] MEDS ORDERED: NITROGLYCERIN SL TABS 0.4 MG TAB SUBLINGUAL PRN (11:46)
[2023-02-06] MEDS ORDERED: RX INFO: IV CONTRAST WAS GIVEN 1 EACH MISC MISCELLANE PRN (11:46)
[2023-02-06] MEDS ORDERED: MAG HYDROX/AL HYDROX/SIMETH 30 ML CUP PO PRN (11:46)
[2023-02-06] MEDS ORDERED: ATROPINE SULFATE 0.1 MG/ML 10ML SYRINGE IV PRN (11:46)
[2023-02-06 11:50] LABS: Creatine Kinase MB 36.7 ng/mL (0.0-2.4)
[2023-02-06 11:52] VITALS: BMI 31.1
[2023-02-06 11:53] LABS: Troponin I 3.91 ng/mL (0.000-0.034)
[2023-02-06 11:53] LABS: Glucose,Whole Blood 116 mg/dL (70-110)
[2023-02-06] MEDS ORDERED: METOPROLOL TARTRATE 25 MG TAB PO SCH (12:00)
[2023-02-06] MEDS ORDERED: SODIUM CHLORIDE 0.9% 1,000 ML in EMPTY BAG 1 BAG IV SCH (12:00)
--- NOTE | 2023-02-06 12:06 | P.CARDCATH ---
Date of Procedure: 02/06/23 Description of Procedure: Cardiac Catheterization: The patient is a 57-year-old male with a known history of CAD status post stenting, most recently in 2020 who presented with an acute episode of chest discomfort and evidence of acute inferior wall myocardial infarction, he was evaluated by Dr. Cosme. Recommendations were made regarding cardiac catheterization, the risks and the complications were discussed with the patient who is in full understanding and agreement. Procedure Description: Patient was brought to labour market economist in fasting semi-sedated state after receiving Fentanyl and Benadryl achieiving moderate conscious sedated state. Using Xylocaine Anesthesia and Seldinger technique, a 6-Jordanian sheath was introduced in the right radial artery . Attempt to cannulate the right coronary ostium using a 6-Jordanian 0.75 AL guiding catheter were unsuccessful, that catheter was exchanged to a 6-Jordanian 4 bend right Nicho, after cannulating the right coronary ostium 0.014 J-wire position and the PDA, subsequently 2.5 x 12 mm Treck balloon was advanced and inflation at 8 alan was done. After removing the balloon 3.5 x 15 mm Xience harley point stent was deployed at 16 alan, after removing the balloon an IVUS Traverse Eye catheter was advanced and imaging were obtained, after removing the catheter a 3 .0 X 12 NC Treck was advanced and inflation in the midsegment at 12 alan was done, after removing the balloon a 3.5 x 20 mm NC Treck was advanced in the midsegment and one inflation at the 16 alan was done but could not open the in- stent restenosis, that balloon was removed and a 4.0 x 12 mm NC Treck was advanced, inflation in the distal RCA was done at 12 alan and subsequently multiple inflations in the mid segment were done at the maximum of 25 alan that was successful in opening the in-stent restenosis, after removing the balloon a 4.0 x 28 mm Xience harley point was deployed proximally at 16 alan and after removing the balloon repeat intravascular ultrasound imaging were obtained, a 4.0 x 20 mm NC Treck was advanced in the midsegment and dilated at 12 alan. After the last inflation the wire was removed and images were obtained and revealed stable successful stenting. Subsequently, selective coronary angiography was performed using a 5-Jordanian 3.5 bend left Nicho catheter. Multiple views of the coronary artery including hemiaxial views were obtained. The 5-Jordanian pigtail catheter was used to cross the aortic valve and LVEDP was calculated. Following that, catheter and sheath were removed. Hemostasis was obtained with deployment of TR band . There was no immediate complication. Patient was returned to room in stable condition. Of note, the patient received a total of 5500 units of intravenous heparin as well as intra-arterial verapamil. He received a loading dose of Effient. Chest discomfort improved at the end of the procedure. His ACT was monitored. He had episodes of frequent PVCs and accelerated idioventricular rhythm. He was returned to his room in stable condition. Findings: Left main: This is a large size vessel, bifurcating into LAD and left circumflex, left main has no high-grade stenosis. LAD: This is a large-size vessel, reaching to the apex, giving rise to a moderately sized branch. The stented segment in the proximal LAD is patent with 10-20% in-stent restenosis. There is intimal disease in the mid LAD with area of stenosis up to 50-60%, the rest of the vessel has no high-grade stenosis. Left circumflex: This is a nondominant vessel giving rise to a large obtuse marginal branch that has no evidence of high-grade stenosis. RCA: This is a dominant vessel the stented segment in the mid artery has an 80% to 90% stenosis the vessel is totally occluded distally with no antegrade flow Left Ventriculogram: Not performed Hemodynamics: There was no gradient across the aortic valve, LVEDP was 14-16 mmHg Conclusion: 1. Acutely occluded distal RCA with significant in-stent restenosis of the mid RCA 2. Patent stent in the proximal LAD was moderate disease in the mid LAD 3. No evidence of significant obstructive disease in the left circumflex 4. Successful stenting of the distal RCA with reduction of stenosis from 100% to 0% 5. Successful stenting of the mid RCA with reduction of stenosis from 80% to 0% with intravascular ultrasound imaging Recommendations: The patient will continue on aspirin and Effient for 1 year without any interruption in addition to aggressive coronary risks modifications. The findings and the recommendations were discussed with the patient and the family and they were in full understanding and agreement. Duration of sedation is 73 minutes.
[2023-02-06] MEDS ORDERED: METOPROLOL TARTRATE 25 MG TAB PO STA (13:28)
[2023-02-06] MEDS ORDERED: lisinopriL 10 MG TAB PO STA (13:29)
[2023-02-06] MEDS ORDERED: DEXTROSE 5% IN WATER 250 ML with AMIODARONE 300 MG IV ONE (13:30)
[2023-02-06] MEDS: ACETAMINOPHEN TAB 325 MG TAB PO PRN ×2 (14:12→19:48)
[2023-02-06] MEDS: ONDANSETRON 4 MG/2 ML VIAL IVP PRN ×2 (15:53→21:04)
[2023-02-06 16:47] LABS: Chol/HDL Ratio 6.15 Ratio; VLDL Calculation 14.78 mg/dL (5.00-40.00)
--- NOTE | 2023-02-06 17:23 | P.HPIM ---
History of Present Illness This is a pleasant 57 years old male with multiple medical problems including coronary artery disease status post stent of LAD, hypertension, hyperlipidemia, obesity, osteoarthritis Presents because of chest pain of one-day duration, troponin was elevated more than 3 and EKG showed inferior posterior AL with ST elevation in the inferior limits on the lateral leads. Patient taken no to emergent cardiac cath by supervisor finishing room and 2 stents placed in the RCA. Postprocedure patient was lying in the ICU looks more comfortable, just been resolved. Still complain from the distal tachypnea but no coughing, no extensive dyspnea and chest examination looks clear. He denies any abdominal pain vomiting or diarrhea, is complaining of from mild dysuria but no urgency. No fever. No headache dizziness weakness or numbness. He denies a smoking but states that he drinks 2 beers almost every day. No illicit drugs. Patient is hemodynamically stable and afebrile He had mild leukocytosis 13,000, potassium 5.3, LFTs mildly elevated with ALT more than AST. LDL is elevated 182. Review of Systems Review of systems CONSTITUTIONAL: No fever, no malaise, no fatigue. HEENT: No recent visual problems or hearing problems. Denied any sore throat. CARDIOVASCULAR: No orthopnea, PND, no palpitations, no syncope. PULMONARY: No shortness of breath, no cough, no hemoptysis. GASTROINTESTINAL: No diarrhea, no nausea, no vomiting, no abdominal pain. Normoactive bowel sounds. NEUROLOGICAL: No headaches, no weakness, no numbness. HEMATOLOGICAL: Denies any bleeding or petechiae. GENITOURINARY: Denies any burning micturition, frequency, or urgency. MUSCULOSKELETAL/RHEUMATOLOGICAL: Denies any joint pain, swelling, or any muscle pain. ENDOCRINE: Denies any polyuria or polydipsia. Past Medical History Past Medical History: Hyperlipidemia, Hypertension, Myocardial Infarction ([place]), Osteoarthritis (OA) Additional Past Medical History / Comment(s): SOB w/activity, head tremor Last Myocardial Infarction Date:: 08/24/2021 History of Any Multi-Drug Resistant Organisms: None Reported Past Surgical History: Heart Catheterization With Stent, Orthopedic Surgery Additional Past Surgical History / Comment(s): 02/06/23 stemi with 2 stents rca 515-15 HEART CATH W/ STENT ,orbital fx. repair, hand surg. Past Anesthesia/Blood Transfusion Reactions: No Reported Reaction Date of Last Stent Placement:: 03-22-15 Smoking Status: Former smoker - Past Family History Mother Family Medical History: No Reported History Medications and Allergies Home Medications Medication Instructions Recorded Confirmed Type Aspirin EC [Ecotrin Low Dose] 81 mg PO DAILY 08/24/21 02/06/23 History Metoprolol Tartrate [Lopressor] 12.5 mg PO BID 08/24/21 02/06/23 History lisinopriL [Zestril] 20 mg PO DAILY 08/24/21 02/06/23 History Ezetimibe [Zetia] 10 mg PO DAILY 30 Days #30 tab 08/25/21 02/06/23 Rx Nitroglycerin Sl Tabs [Nitrostat] 0.4 mg SL Q5M PRN 10/17/22 02/06/23 History Allergies Allergy/AdvReac Type Severity Reaction Status Date / Time No Known Allergies Allergy Verified 02/06/23 12:44 Physical Exam Vitals: Vital Signs Temp Pulse Resp BP Pulse Ox 02/06/23 15:15 107 H 14 156/116 97 02/06/23 15:00 104 H 13 153/124 96 02/06/23 14:45 120 H 14 153/124 97 02/06/23 14:30 111 H 13 151/105 96 02/06/23 14:15 102 H 18 134/109 96 02/06/23 14:00 121 H 28 H 163/128 97 02/06/23 13:45 111 H 21 163/118 97 02/06/23 13:30 124 H 19 181/119 98 02/06/23 13:15 113 H 18 181/128 97 02/06/23 13:00 122 H 19 171/129 97 02/06/23 12:45 117 H 16 143/121 97 02/06/23 12:30 86 25 H 163/113 97 02/06/23 12:20 95 14 163/113 96 02/06/23 12:10 97 16 162/125 95 02/06/23 12:00 98 14 204/164 96 02/06/23 11:50 98 F 101 H 28 H 204/102 92 L 02/06/23 10:05 98 F 78 24 164/124 99 Intake and Output 02/06/23 02/06/23 02/06/23 06:59 14:59 22:59 Intake Total 612 104 Balance 612 104 Intake: IV 300 Intake, IV Titration 312 104 Amount Sodium Chloride 0.9% 1, 312 104 000 ml In Empty Bag 1 bag @ 1 ML/KG/HR 104.326 mls /hr IV .[id number] [facility] Rx#: [id number] Other: Weight 104.326 kg -GENERAL: The patient is alert and oriented x3, not in any acute distress. Obese HEENT: Pupils are round and equally reacting to light. EOMI. No scleral icterus. No conjunctival pallor. Normocephalic, atraumatic. No pharyngeal erythema. No thyromegaly. CARDIOVASCULAR: S1 and S2 present. No murmurs, rubs, or gallops. PULMONARY: Chest is clear to auscultation, no wheezing or crackles. ABDOMEN: Soft, nontender, nondistended, normoactive bowel sounds. No palpable organomegaly. MUSCULOSKELETAL: No joint swelling or deformity. EXTREMITIES: No cyanosis, clubbing, or pedal edema. NEUROLOGICAL: Gross neurological examination did not reveal any focal deficits. SKIN: No rashes. no petechiae. Results CBC & Chem 7: 02/06/23 11:07 02/06/23 11:07 Labs: Abnormal Lab Results - Last 24 Hours (Table) 02/06/23 02/06/23 02/06/23 Range/Units 11:07 11:07 11:07 WBC 13.8 H (3.8-10.6) k/uL Neutrophils # 11.5 H (1.3-7.7) k/uL APTT 78.5 H (22.0-30.0) sec Potassium 5.3 H (3.5-5.1) mmol/L Glucose 109 H (74-99) mg/dL POC Glucose (mg/dL) (70-110) mg/dL AST 88 H (17-59) U/L ALT 64 H (4-49) U/L Total Creatine Kinase (55-170) U/L CK-MB (CK-2) (0.0-2.4) ng/mL Troponin I (0.000-0.034) ng/mL 02/06/23 02/06/23 Range/Units 11:07 11:52 WBC (3.8-10.6) k/uL Neutrophils # (1.3-7.7) k/uL APTT (22.0-30.0) sec Potassium (3.5-5.1) mmol/L Glucose (74-99) mg/dL POC Glucose (mg/dL) 116 H (70-110) mg/dL AST (17-59) U/L ALT (4-49) U/L Total Creatine Kinase 735 H (55-170) U/L CK-MB (CK-2) 36.7 H (0.0-2.4) ng/mL Troponin I 3.910 H* (0.000-0.034) ng/mL Assessment and Plan Assessment: Inferior-posterior acute AL, STEMI, status post PCI to RCA 2 Hyperlipidemia, uncontrolled on admission Hypertension Obesity with BMI 31.2 Mild alcohol use disorder with mild transaminitis most likely related to alcohol use. Dysuria, rule out UTI. Plan: Continue with dual antiplatelet therapy Continue with statin Continue with beta leonel and JASON inhibitor Cardiology team on the case Labs and medication were reviewed.. Continue same treatment. Continue with symptomatic treatment. Resume home medication. Monitor labs and vitals. DVT and GI prophylaxis. Further recommendations as per clinical course of the patient DVT prophylaxis: Eliquis per cardiology team GI Prophylaxis: Pepcid
[2023-02-06] MEDS: APIXABAN 5 MG TAB PO SCH (20:01)
[2023-02-06] MEDS: ATORVASTATIN 80 MG TAB PO SCH (20:01)
[2023-02-06] MEDS: lisinopriL 10 MG TAB PO SCH (20:01)
[2023-02-06] MEDS: METOPROLOL TARTRATE 50 MG TAB PO SCH (20:01)
[2023-02-06] MEDS: FAMOTIDINE 20 MG/2 ML VIAL IV SCH (20:02)
[2023-02-06] MEDS ORDERED: lisinopriL 5 MG TAB PO SCH (21:00)
[2023-02-06 21:44] LABS: Appearance,Urine Clear (Clear); Bilirubin,Urine Negative (Negative); Blood,Urine Negative (Negative); Color,Urine Yellow; Glucose,Urine (UA) Negative (Negative); Ketones,Urine Negative (Negative); Leukocyte Esterase,Urine Negative (Negative); Nitrite,Urine Negative (Negative); Protein,Urine Negative (Negative); Specific Gravity,Urine 1.037 (1.001-1.035); Urobilinogen,Urine <2.0 mg/dL (<2.0)
[2023-02-07] MEDS: ZOLPIDEM 5 MG TAB PO PRN ×2 (00:15→22:47)
[2023-02-07] MEDS: ONDANSETRON 4 MG/2 ML VIAL IVP PRN (03:51)
[2023-02-07 05:52] LABS: Basophils % (A) 0 %; Eosinophils # (A) 0.1 k/uL (0-0.7); Eosinophils % (A) 1 %; HCT 39.6 % (39.0-53.0); HGB 14.1 gm/dL (13.0-17.5); Lymphocytes % (A) 7 %; MCH 32.4 pg (25.0-35.0); MCHC 35.6 g/dL (31.0-37.0); Mean Platelet Volume 7.5; Monocytes # (A) 0.8 k/uL (0-1.0); Monocytes % (A) 6 %; Neutrophils # (A) 11.6 k/uL (1.3-7.7); Neutrophils % (A) 85 %; Platelet Count 204 k/uL (150-450); RBC 4.35 m/uL (4.30-5.90); RDW 12.7 % (11.5-15.5); WBC 13.7 k/uL (3.8-10.6)
[2023-02-07 05:56] LABS: African American GFR (CKD) >90 (>60 ml/min/1.73 sqM); Anion Gap 7 mmol/L; Blood Urea Nitrogen 9 mg/dL (9-20); Calcium 8.4 mg/dL (8.4-10.2); Carbon Dioxide 24 mmol/L (22-30); Chloride 105 mmol/L (98-107); Glucose 135 mg/dL (74-99); Non-African American GFR(CKD) >90 (>60 ml/min/1.73 sqM); Potassium 4.6 mmol/L (3.5-5.1); Sodium 136 mmol/L (137-145)
[2023-02-07] MEDS: lisinopriL 10 MG TAB PO SCH ×2 (09:46→20:58)
[2023-02-07] MEDS: ASPIRIN 81 MG PO SCH (09:46)
[2023-02-07] MEDS: ACETAMINOPHEN TAB 325 MG TAB PO PRN ×2 (09:46→22:48)
[2023-02-07] MEDS: EZETIMIBE 10 MG TAB PO SCH (09:46)
[2023-02-07] MEDS: METOPROLOL TARTRATE 50 MG TAB PO SCH ×2 (09:46→20:58)
[2023-02-07] MEDS: FAMOTIDINE 20 MG/2 ML VIAL IV SCH ×2 (09:47→20:58)
[2023-02-07] MEDS: APIXABAN 5 MG TAB PO SCH ×2 (09:47→20:58)
[2023-02-07] MEDS: PRASUGREL 10 MG TAB PO SCH (09:49)
[2023-02-07] MEDS ORDERED: AMIODARONE 360 MG in DEXTROSE 5% IN WATER 200 ML IV ONE ×2 (10:52)
--- NOTE | 2023-02-07 10:52 | P.PN ---
Subjective Progress Note Date: 02/07/23 History of present illness: This is this is a 57-year-old male with past medical history of coronary artery disease status post stenting in the past 2 years ago. He is nondiabetic, nonsmoker. Patient woke up this morning with chest discomfort at around 6:[address] Cosme received a call from the ER stating that the patient was being brought in for an ST elevation CO, inferior, and was 20 minutes out When he arrived he was in severe pain and his twelve-lead EKG showed ST elevations in the inferior leads, possibly lead 2 [address] elevations higher than lead 3 with posterior extension Blood pressure elevated heart rate normal 02/07 Yesterday, patient was taken urgently to the labor relations consultant with Dr. Callaway which revealed an acutely occluded distal RCA with significant in-stent restenosis of the mid RCA. Patent stent in the proximal LAD was moderate disease in the mid LAD. No evidence of significant obstructive disease in the left circumflex. He underwent successful stenting of the distal RCA as well as the mid RCA. Patient is seen today in follow-up in the intensive care unit. Patient developed atrial fibrillation overnight was given a 300 mg amiodarone bolus but unfortunately did not cardiovert. He is still in atrial fibrillation this morning. Blood pressure has been fluctuating 142/172290/96. He still has some ache in his chest but it is going away gradually and feels much better. No significant chest pain. He states he could not sleep overnight and felt achy all over. He did have some nausea this morning which is better he was able to eat a little bit of breakfast. Echocardiogram has been obtained and report is pending at the time of this dictation. Physical examination: Gen: This is a 57-year-old male. He is resting in the ICU and appears to be comfortable. No acute distress noted. VS: reviewed HEENT: Head is atraumatic, normocephalic. Pupils equal, round. Sclerae is anicteric. NECK: Supple. No JVD. . LUNGS: Clear to auscultation. No wheezes or rhonchi. No intercostal retractions. HEART: Irregular rate and rhythm. No murmur. ABDOMEN: Soft EXTREMITIES: No pedal edema. No calf tenderness. NEUROLOGICAL: Patient is awake, alert and oriented x3. Assessment: Inferior posterior CO, ST elevation, acute, pain began around 6:30 AM History of coronary artery disease status post stenting in the past New onset paroxysmal atrial fibrillation Nondiabetic nonsmoker Positive marijuana use Plan: Start patient on amiodarone drip with goal to chemically cardiovert Continue patient on eliquis 5 mg twice daily, aspirin 81 mg daily, Lipitor 80 mg at bedtime, start Zetia 10 mg daily, continue lisinopril 10 mg twice daily, Lopressor 50 mg twice daily, Effient 10 mg daily Further recommendations to follow based upon clinical course Thank you kindly for this consultation. Nurse practitioner note has been reviewed, I agree with documented findings and plan of care. Patient was seen and examined. Objective - Vital Signs Vital signs: Vital Signs Temp 97.9 F 02/07/23 08:00 Pulse 90 02/07/23 10:00 Resp 18 02/07/23 10:00 BP 142/106 02/07/23 10:00 Pulse Ox 95 02/07/23 10:00 FiO2 Intake & Output 02/06/23 02/07/23 02/07/23 18:59 06:59 18:59 Intake Total 1028 1352 254 Output Total 850 1400 Balance 1028 502 -1146 Weight 104.326 kg 100.3 kg Intake: IV 300 Intake, IV Titration 728 1352 104 Amount Sodium Chloride 0.9% 1, 728 1352 104 000 ml In Empty Bag 1 bag @ 1 ML/KG/HR 104.326 mls /hr IV .Q9H36M [facility] Rx#: [id number] Oral 150 Output: Urine 850 1400 Other: Voiding Method Urinal Urinal Urinal # Voids 1 1 - Labs CBC & Chem 7: 02/07/23 05:14 02/07/23 05:14 Labs: Abnormal Lab Results - Last 24 Hours (Table) 02/06/23 02/06/23 02/06/23 Range/Units 11:07 11:07 11:07 WBC 13.8 H (3.8-10.6) k/uL Neutrophils # 11.5 H (1.3-7.7) k/uL APTT 78.5 H (22.0-30.0) sec Sodium (137-145) mmol/L Potassium 5.3 H (3.5-5.1) mmol/L Glucose 109 H (74-99) mg/dL POC Glucose (mg/dL) (70-110) mg/dL AST 88 H (17-59) U/L ALT 64 H (4-49) U/L Total Creatine Kinase (55-170) U/L CK-MB (CK-2) (0.0-2.4) ng/mL Troponin I (0.000-0.034) ng/mL Cholesterol (0.00-200.00) mg/dL LDL Cholesterol, Calc (0.0-131.0) mg/dL HDL Cholesterol (40.00-60.00) mg/dL Ur Specific [place] (1.001-1.035) 02/06/23 02/06/23 02/06/23 Range/Units 11:07 11:07 11:52 WBC (3.8-10.6) k/uL Neutrophils # (1.3-7.7) k/uL APTT (22.0-30.0) sec Sodium (137-145) mmol/L Potassium (3.5-5.1) mmol/L Glucose (74-99) mg/dL POC Glucose (mg/dL) 116 H (70-110) mg/dL AST (17-59) U/L ALT (4-49) U/L Total Creatine Kinase 735 H (55-170) U/L CK-MB (CK-2) 36.7 H (0.0-2.4) ng/mL Troponin I 3.910 H* (0.000-0.034) ng/mL Cholesterol 235.00 H (0.00-200.00) mg/dL LDL Cholesterol, Calc 182.0 H (0.0-131.0) mg/dL HDL Cholesterol 38.20 L (40.00-60.00) mg/dL Ur Specific [place] (1.001-1.035) 02/06/23 02/07/23 02/07/23 Range/Units 21:23 05:14 05:14 WBC 13.7 H (3.8-10.6) k/uL Neutrophils # 11.6 H (1.3-7.7) k/uL APTT (22.0-30.0) sec Sodium 136 L (137-145) mmol/L Potassium (3.5-5.1) mmol/L Glucose 135 H (74-99) mg/dL POC Glucose (mg/dL) (70-110) mg/dL AST (17-59) U/L ALT (4-49) U/L Total Creatine Kinase (55-170) U/L CK-MB (CK-2) (0.0-2.4) ng/mL Troponin I (0.000-0.034) ng/mL Cholesterol (0.00-200.00) mg/dL LDL Cholesterol, Calc (0.0-131.0) mg/dL HDL Cholesterol (40.00-60.00) mg/dL Ur Specific [place] 1.037 H (1.001-1.035)
--- NOTE | 2023-02-07 11:11 | CA ---
Transthoracic Echo Report Name: Armando Stallworth Age: 57 Gender: M : 1965 Exam Date: 02/06/2023 13:40 Exam Location: [facility] Ht (in): 72 Wt (lb): 230 Ordering Physician: Ac Callaway MD ([id number]) Attending/Referring Phys: Sanding Machine Operator Carmen Morales RDCS Procedure CPT: Indications: AK Cardiac Hx: Technical Quality: Technically difficult study Contrast 1: [place] Total Dose (mL): 4 Contrast 2: Total Dose (mL): MEASUREMENTS (Male / Female) Normal Values 2D ECHO LV Diastolic Diameter PLAX 3.4 cm 4.2 - 5.9 / 3.9 - 5.3 cm LV Systolic Diameter PLAX 2.5 cm IVS Diastolic Thickness 1.1 cm 0.6 - 1.0 / 0.6 - 0.9 cm LVPW Diastolic Thickness 1.4 cm 0.6 - 1.0 / 0.6 - 0.9 cm LV Relative Wall Thickness 0.8 RV Internal Dim ED PLAX 3.2 cm LA Volume 67.3 cm??? 18 - 58 / 22 - 52 cm??? M-MODE Aortic Root Diameter MM 4.1 cm LA Systolic Diameter MM 3.9 cm LA Ao Ratio MM 1.0 AV Cusp Separation MM 2.0 cm DOPPLER AV Peak Velocity 103.7 cm/s AV Peak Gradient 4.3 mmHg AV Mean Velocity 70.1 cm/s AV Mean Gradient 2.2 mmHg AV Velocity Time Integral 15.2 cm AI Peak Velocity 320.4 cm/s AI Peak Gradient 41.1 mmHg AI Pressure Half Time 426.5 ms LVOT Peak Velocity 105.1 cm/s LVOT Peak Gradient 4.4 mmHg LVOT Velocity Time Integral 15.6 cm MV E' Velocity 8.8 cm/s FINDINGS Left Ventricle Mildly increased left ventricular wall thickness. Hypokinetic anterior wall. Hypokinetic lateral wall. Hypokinetic inferior wall. Patient is in A-fib with RVR. Moderatly decreased LV function. Left ventricular ejection fraction is estimated at 25-30 %. Right Ventricle Normal right ventricular size and function. Right Atrium Normal right atrial size. Left Atrium Mildly increased left atrial volume. Mildly increased left atrial area. Mitral Valve Structurally normal mitral valve. Trace to mild mitral regurgitation. Aortic Valve No aortic valve stenosis or regurgitation. Tricuspid Valve Structurally normal tricuspid valve. Trace to mild tricuspid regurgitation. Pulmonic Valve Trace pulmonic regurgitation. Pericardium No pericardial effusion. Aorta Normal size aortic root and proximal ascending aorta. CONCLUSIONS Severe LV dysfunction with septal dyskinesis Previewed by: Dr. Chucky Cosme MD (Electronically Signed) Final Date: 07 February 2023 11:10
[2023-02-07] MEDS: AMIODARONE 450 MG in DEXTROSE 5% IN WATER 250 ML IV SCH ×2 (17:18)
[2023-02-07] MEDS: ATORVASTATIN 80 MG TAB PO SCH (20:58)
[2023-02-08] MEDS: AMIODARONE 450 MG in DEXTROSE 5% IN WATER 250 ML IV SCH ×2 (08:45)
[2023-02-08] MEDS: APIXABAN 5 MG TAB PO SCH ×2 (08:45→20:28)
[2023-02-08] MEDS: ASPIRIN 81 MG PO SCH (08:45)
[2023-02-08] MEDS: FAMOTIDINE 20 MG/2 ML VIAL IV SCH ×2 (08:45→20:20)
[2023-02-08] MEDS: EZETIMIBE 10 MG TAB PO SCH (08:45)
[2023-02-08] MEDS: METOPROLOL TARTRATE 50 MG TAB PO SCH ×2 (08:45→20:20)
[2023-02-08] MEDS: PRASUGREL 10 MG TAB PO SCH (08:45)
--- NOTE | 2023-02-08 10:37 | PN ---
PROGRESS NOTE HISTORY OF PRESENT ILLNESS: Jose Luis is a 57-year-old gentleman who was admitted to hospital with acute myocardial infarction, underwent cardiac catheterization and angioplasty of the right coronary artery. This morning he is free of cardiac symptoms. Denies chest pain, difficulty in breathing, PND, or orthopnea. His troponin was 3.9. The patient developed atrial fibrillation and is currently being treated with intravenous amiodarone. He remains in atrial fibrillation with controlled ventricular rate. Lipid profile showed that the total cholesterol is 235 with an LDL of 182. An echocardiogram on this admission revealed severe LV systolic dysfunction with an ejection fraction of 25% to 30%. PHYSICAL EXAMINATION: GENERAL: Comfortable at rest. VITAL SIGNS: Stable. NECK: There is no jugular venous distention. Carotid upstroke is normal. There is no bruit. CHEST: Reveals good air entry bilaterally. HEART: Reveals first and second heart sounds, irregular rhythm. No murmur. ABDOMEN: Soft. EXTREMITIES: Did not reveal any edema. Peripheral pulses are felt. LABORATORY DATA: Labs show that the hemoglobin is 14.1, platelet count is 204, potassium is 4.6, creatinine is 0.6. Troponin is 3.9. AST, ALT are elevated. LDL cholesterol is 182. ASSESSMENT: 1. Acute inferior wall myocardial infarction, status post catheterization and angioplasty. 2. Persistent atrial fibrillation. PLAN: The patient will be treated with oral amiodarone, aspirin, Eliquis, Lipitor, Zetia, Zestril, and Lopressor. The patient will be discharged home on a life vest. I will transfer him out of ICU. MMODL / IJN: [id number] /
[2023-02-08] MEDS: lisinopriL 10 MG TAB PO SCH ×2 (11:11→22:17)
--- NOTE | 2023-02-08 15:36 | P.PN ---
Subjective Progress Note Date: 02/08/23 This is a pleasant 57 years old male with multiple medical problems including coronary artery disease status post stent of LAD, hypertension, hyperlipidemia, obesity, osteoarthritis Presents because of chest pain of one-day duration, troponin was elevated more than 3 and EKG showed inferior posterior VT with ST elevation in the inferior limits on the lateral leads. Patient taken no to emergent cardiac cath by classics professor and 2 stents placed in the RCA. Postprocedure patient was lying in the ICU looks more comfortable, just been resolved. Still complain from the distal tachypnea but no coughing, no extensive dyspnea and chest examination looks clear. He denies any abdominal pain vomiting or diarrhea, is complaining of from mild dysuria but no urgency. No fever. No headache dizziness weakness or numbness. He denies a smoking but states that he drinks 2 beers almost every day. No illicit drugs. Patient is hemodynamically stable and afebrile He had mild leukocytosis 13,000, potassium 5.3, LFTs mildly elevated with ALT more than AST. LDL is elevated 182. 02/08/2023 Patient evaluated in the intensive care unit he is status post PCI with 2 stents to the RCA. He continues on dual antiplatelet therapy. he has no complaints of chest pain overnight, and no shortness of breath. Echocardiogram done and shows an EF of 25-30% with septal dyskinesis. He remains on IV amiadrone with plan to transition to oral today. He has been recommended for lifevest on discharge. He has been downgraded from ICU. White count 13.7, sodium 136, potassium improved to 4.6. Patient is counseled on alcohol cessation. Review of Systems Constitutional: Denied any fatigue denied any fever. Cardio vascular: denied any chest pain, palpitations Gastrointestinal: denied any nausea, vomiting, diarrhea Pulmonary: Denied any shortness of breath cough Neurologic denied any new focal deficits All inpatient medications were reviewed and appropriate changes in these medications as dictated in the interval history and assessment and plan. PHYSICAL EXAMINATION: GENERAL: The patient is alert and oriented x3, not in any acute distress. Well developed, well nourished. HEENT: Pupils are round and equally reacting to light. EOMI. No scleral icterus. No conjunctival pallor. Normocephalic, atraumatic. No pharyngeal erythema. No thyromegaly. CARDIOVASCULAR: S1 and S2 present. No murmurs, rubs, or gallops. PULMONARY: Chest is clear to auscultation, no wheezing or crackles. ABDOMEN: Soft, nontender, nondistended, normoactive bowel sounds. No palpable organomegaly. MUSCULOSKELETAL: No joint swelling or deformity. EXTREMITIES: No cyanosis, clubbing, or pedal edema. NEUROLOGICAL: Gross neurological examination did not reveal any focal deficits. SKIN: No rashes. Assessment and Plan Assessment Inferior-posterior acute VT, STEMI, status post PCI to RCA 2 Persistent atrial fibrillation, new onset currently on amiodarone gtt. Acute systolic heart failure, reduced EF likely from myocardial infarction Hyperlipidemia, uncontrolled on admission Hypertension Obesity with BMI 31.2 Mild alcohol use disorder with mild transaminitis most likely related to alcohol use. Dysuria, no evidence for acute UTI, resolved GI prophylaxis DVT prophylaxis Full Code Plan Continue on dual antiplatelet therapy Cardiac telemetry Zoll lifevest on discharge, pending consultation Transition to oral amiodarone and continue on eliquis Patient is monitored closely in ICU has been downgraded to stepdown unit The impression and plan of care has been dictated by Yadira Goff, Nurse Practitioner as directed. Dr. Pedro MD I have performed a history and physical examination and medical decision making of this patient, discussed the same with the dictator, and agree with the dictators assessment and plan as written, documented as a scribe. Based on total visit time, I have performed more than 50% of this visit. Objective - Vital Signs Vital signs: Vital Signs Temp 98.2 F 02/08/23 12:00 Pulse 93 02/08/23 13:00 Resp 16 02/08/23 13:00 BP 101/74 02/08/23 13:00 Pulse Ox 96 02/08/23 13:00 FiO2 Intake & Output 02/07/23 02/08/23 02/08/23 18:59 06:59 18:59 Intake Total 770.64 1216.66 500 Output Total 2800 1200 400 Balance -. 100 Weight 95 kg Intake: Intake, IV Titration 320.64 16.66 500 Amount Amiodarone 360 mg In 199.98 Dextrose 5% in Water 200 ml @ 1 MG/MIN 33.333 mls/ hr IV .Q6H [facility] Rx#: [id number] Amiodarone 450 mg In 16.66 16.66 250 Dextrose 5% in Water 250 ml @ 0.5 MG/MIN 16.667 mls/hr IV .Q15H [facility] Rx#: [id number] Nitroglycerin-D5w Pmx 50 250 mg In Dextrose/Water 1 250ml.bag @ 5 MCG/MIN 1.5 mls/hr IV .Q24H [facility] Rx#: [id number] Sodium Chloride 0.9% 1, 104 000 ml In Empty Bag 1 bag @ 1 ML/KG/HR 104.326 mls /hr IV .Q9H36M [facility] Rx#: [id number] Oral 450 1200 Output: Urine 2800 1200 400 Other: Voiding Method Urinal Urinal Toilet Urinal # Voids 1 1 # Bowel Movements 1 1 2 - Labs CBC & Chem 7: 02/07/23 05:14 02/07/23 05:14 Assessment and Plan Time with Patient: Greater than 30
[2023-02-08] MEDS: ATORVASTATIN 80 MG TAB PO SCH (20:20)
[2023-02-08] MEDS: ZOLPIDEM 5 MG TAB PO PRN (22:17)
[2023-02-08] MEDS: AMIODARONE 200 MG TAB PO SCH (22:18)
--- NOTE | 2023-02-09 07:05 | P.PN ---
Subjective This is a pleasant 57 years old male with multiple medical problems including coronary artery disease status post stent of LAD, hypertension, hyperlipidemia, obesity, osteoarthritis Presents because of chest pain of one-day duration, troponin was elevated more than 3 and EKG showed inferior posterior MT with ST elevation in the inferior limits on the lateral leads. Patient taken no to emergent cardiac cath by machine greaser and 2 stents placed in the RCA. Postprocedure patient was lying in the ICU looks more comfortable, just been resolved. Still complain from the distal tachypnea but no coughing, no extensive dyspnea and chest examination looks clear. He denies any abdominal pain vomiting or diarrhea, is complaining of from mild dysuria but no urgency. No fever. No headache dizziness weakness or numbness. He denies a smoking but states that he drinks 2 beers almost every day. No illicit drugs. Patient is hemodynamically stable and afebrile He had mild leukocytosis 13,000, potassium 5.3, LFTs mildly elevated with ALT more than AST. LDL is elevated 182. 02/07/2023 Patient remains in the ICU monitor closely He denies any chest pain or dyspnea He is hemodynamically stable Remains on dual antiplatelet therapy Ejection fraction 30-35% Objective - Vital Signs Vital signs: Vital Signs Temp 97.8 F 02/07/23 12:00 Pulse 98 02/07/23 12:00 Resp 14 02/07/23 12:00 BP 136/99 02/07/23 12:00 Pulse Ox 96 02/07/23 12:00 FiO2 Intake & Output 02/06/23 02/07/23 02/07/23 18:59 06:59 18:59 Intake Total 1028 1352 254 Output Total 850 2200 Balance 1028 502 -1946 Weight 104.326 kg 100.3 kg Intake: IV 300 Intake, IV Titration 728 1352 104 Amount Sodium Chloride 0.9% 1, 728 1352 104 000 ml In Empty Bag 1 bag @ 1 ML/KG/HR 104.326 mls /hr IV .Q9H36M [facility] Rx#: [id number] Oral 150 Output: Urine 850 2200 Other: Voiding Method Urinal Urinal Urinal # Voids 1 1 - Exam GENERAL: The patient is alert and oriented x3, not in any acute distress. Well developed, well nourished. HEENT: Pupils are round and equally reacting to light. EOMI. No scleral icterus. No conjunctival pallor. Normocephalic, atraumatic. No pharyngeal erythema. No thyromegaly. CARDIOVASCULAR: S1 and S2 present. No murmurs, rubs, or gallops. PULMONARY: Chest is clear to auscultation, no wheezing or crackles. ABDOMEN: Soft, nontender, nondistended, normoactive bowel sounds. No palpable organomegaly. MUSCULOSKELETAL: No joint swelling or deformity. EXTREMITIES: No cyanosis, clubbing, or pedal edema. NEUROLOGICAL: Gross neurological examination did not reveal any focal deficits. SKIN: No rashes. no petechiae. - Labs CBC & Chem 7: 02/07/23 05:14 02/07/23 05:14 Labs: Abnormal Lab Results - Last 24 Hours (Table) 02/06/23 02/06/23 02/07/23 Range/Units 11:07 21:23 05:14 WBC 13.7 H (3.8-10.6) k/uL Neutrophils # 11.6 H (1.3-7.7) k/uL Sodium (137-145) mmol/L Glucose (74-99) mg/dL Cholesterol 235.00 H (0.00-200.00) mg/dL LDL Cholesterol, Calc 182.0 H (0.0-131.0) mg/dL HDL Cholesterol 38.20 L (40.00-60.00) mg/dL Ur Specific [place] 1.037 H (1.001-1.035) 02/07/23 Range/Units 05:14 WBC (3.8-10.6) k/uL Neutrophils # (1.3-7.7) k/uL Sodium 136 L (137-145) mmol/L Glucose 135 H (74-99) mg/dL Cholesterol (0.00-200.00) mg/dL LDL Cholesterol, Calc (0.0-131.0) mg/dL HDL Cholesterol (40.00-60.00) mg/dL Ur Specific [place] (1.001-1.035) Assessment and Plan Assessment: Inferior-posterior acute MT, STEMI, status post PCI to RCA 2 Hyperlipidemia, uncontrolled on admission Hypertension Obesity with BMI 31.2 Mild alcohol use disorder with mild transaminitis most likely related to alcohol use. Dysuria, rule out UTI. Plan: Continue with dual antiplatelet therapy Continue with statin Continue with beta leonel and JASON inhibitor Cardiology team on the case Labs and medication were reviewed.. Continue same treatment. Continue with symptomatic treatment. Resume home medication. Monitor labs and vitals. DVT and GI prophylaxis. Further recommendations as per clinical course of the patient DVT prophylaxis: Eliquis per cardiology team GI Prophylaxis: Pepcid
[2023-02-09] MEDS: FAMOTIDINE 20 MG/2 ML VIAL IV SCH (08:26)
[2023-02-09] MEDS: METOPROLOL TARTRATE 50 MG TAB PO SCH (08:26)
[2023-02-09] MEDS: ASPIRIN 81 MG PO SCH (08:26)
[2023-02-09] MEDS: lisinopriL 10 MG TAB PO SCH (08:26)
[2023-02-09] MEDS: EZETIMIBE 10 MG TAB PO SCH (08:26)
[2023-02-09] MEDS: AMIODARONE 200 MG TAB PO SCH (08:26)
[2023-02-09] MEDS: APIXABAN 5 MG TAB PO SCH (08:26)
[2023-02-09] MEDS: PRASUGREL 10 MG TAB PO SCH (10:23)
--- NOTE | 2023-02-09 11:45 | P.PN ---
Subjective Progress Note Date: 02/09/23 HISTORY OF PRESENT ILLNESS: 02/06/2023 This is this is a 57-year-old male with past medical history of coronary artery disease status post stenting in the past 2 years ago. He is nondiabetic, nonsmoker. Patient woke up this morning with chest discomfort at around 6:[address] Cosme received a call from the ER stating that the patient was being brought in for an ST elevation SC, inferior, and was 20 minutes out When he arrived he was in severe pain and his twelve-lead EKG showed ST elevations in the inferior leads, possibly lead [address] elevations higher than lead 3 with posterior extension Blood pressure elevated heart rate normal 02/07 Yesterday, patient was taken urgently to the laboratory inspector with Dr. Callaway which revealed an acutely occluded distal RCA with significant in-stent restenosis of the mid RCA. Patent stent in the proximal LAD was moderate disease in the mid LAD. No evidence of significant obstructive disease in the left circumflex. He underwent successful stenting of the distal RCA as well as the mid RCA. Patient is seen today in follow-up in the intensive care unit. Patient developed atrial fibrillation overnight was given a 300 mg amiodarone bolus but unfortunately did not cardiovert. He is still in atrial fibrillation this morning. Blood pressure has been fluctuating 142/296544/96. He still has some ache in his chest but it is going away gradually and feels much better. No significant chest pain. He states he could not sleep overnight and felt achy all over. He did have some nausea this morning which is better he was able to eat a little bit of breakfast. Echocardiogram has been obtained and report is pending at the time of this dictation. 02/09/2023 Patient examined this morning at the bedside. Patient denies chest pain or pressure. He denies shortness of breath. Vital signs are stable. Patient has been up ambulating to the bathroom without difficulty. Echocardiogram completed revealing ejection fraction 25-30% trace to mild MR PHYSICAL EXAM: VITAL SIGNS: Reviewed. GENERAL: Well-developed in no acute distress. NECK: Supple. No JVD or thyromegaly LUNGS: Respirations even and unlabored. Lungs essentially clear to auscultation bilaterally. HEART: Regular rate and rhythm. S1 and S2 heard. EXTREMITIES: Normal range of motion. No clubbing or cyanosis. Peripheral pulses intact. No lower extremity edema ASSESSMENT: STEMI, status post stenting of distal and mid RCA Ischemic cardiomyopathy, EF 25-30% New-onset persistent atrial fibrillation History of coronary artery disease History of marijuana use PLAN: Continue current cardiac medications Continue triple therapy for one month Patient to receive life vest today to prevent sudden cardiac secondary to severe cardiomyopathy Patient may be discharged home this afternoon from a cardiac standpoint Nurse practitioner note has been reviewed by physician. Signing provider agrees with the documented findings, assessment, and plan of care. Objective - Vital Signs Vital signs: Vital Signs Temp 98.0 F 02/09/23 07:49 Pulse 69 02/09/23 10:51 Resp 17 02/09/23 10:51 BP 110/66 02/09/23 07:49 Pulse Ox 94 L 02/08/23 21:00 FiO2 Intake & Output 02/08/23 02/09/23 02/09/23 18:59 06:59 18:59 Intake Total 500 236 Output Total 1350 600 Balance -850 -600 236 Weight 94.5 kg Intake: Intake, IV Titration 500 Amount Amiodarone 450 mg In 250 Dextrose 5% in Water 250 ml @ 0.5 MG/MIN 16.667 mls/hr IV .Q15H [facility] Rx#: [id number] Nitroglycerin-D5w Pmx 50 250 mg In Dextrose/Water 1 250ml.bag @ 5 MCG/MIN 1.5 mls/hr IV .Q24H [facility] Rx#: [id number] Oral 236 Output: Urine 1350 600 Other: Voiding Method Toilet Toilet Toilet Urinal Urinal Urinal # Voids 1 # Bowel Movements 2 - Labs CBC & Chem 7: 02/07/23 05:14 02/07/23 05:14
[2023-02-09 12:06] VITALS: BP 103/66; PULSE 60; RESP 16; TEMP 98.2
--- NOTE | 2023-02-10 16:08 | P.DS ---
Providers Date of admission: 02/06/23 10:01 Attending physician: Erwin Joyner MD Consults: 02/06/23 11:46 Consult Physician Routine Consulting Provider: [facility] Consult Reason/Comments: Post Interventional Patient Do you want consulting provider notified?: Already Contacted Primary care physician: Ilya Barraza [facility] Course: Final Diagnosis Inferior-posterior acute ND, STEMI, status post PCI to RCA 2 Persistent atrial fibrillation, new onset Acute systolic heart failure, reduced EF Hyperlipidemia, uncontrolled on admission Hypertension Obesity with BMI 31.2 Mild alcohol use disorder with mild transaminitis most likely related to alcohol use. Dysuria, no evidence for acute UTI, resolved Full Code Discharge Disposition Patient is stable for discharge. He has been cleared by cardiology. Patient received Zoll Lifevest prior to discharge. His ejection fraction found to be 25- 30%. Patient to follow up with cardiology on discharge. Patient recommend to continue triple therapy for one month with eliquis BID, Aspirin 81 mg daily, effient 10 mg daily. Recommend following LFT's outpatient. Hospital Course This is a pleasant 57 years old male with multiple medical problems including coronary artery disease status post stent of LAD, hypertension, hyperlipidemia, obesity, osteoarthritis. Presents because of chest pain of one-day duration, troponin was elevated more than 3 and EKG showed inferior posterior ND with ST elevation in the inferior limits on the lateral leads. Patient went for emergent cardiac catheterization and received 2 stents to the RCA. He was monitored in ICU post procedure. He denies a smoking but states that he drinks 2 beers almost every day. No illicit drugs. He had mild leukocytosis 13,000, potassium 5.3, LFTs mildly elevated with ALT more than AST. LDL is elevated 182. Echocardiogram done and shows an EF of 25-30% with septal dyskinesis. Patient also found to be in atrial fibrillation with rapid ventricular rate he was on IV amiodarone. This was transitioned to oral on discharge. He was recommended for lifevest on discharge. He is cleared by cardiology. Symptoms have resolved. 02/09/2023 Patient evaluated today on the stepdown unit. He has lifevest on and had information session with significant other at bedside. He has no further questions. He is denying shortness of breath, no chest pain. His lungs are clear and S1 S2 auscultated, abdomen is soft and non tender. His radial access site is clean approximated with +2 radial pulse. Potassium down to 4.6. He is afebrile, heart rate 60, blood pressure 103/66, 95% room air. Please see medication reconciliation for a list of current medication. Thank you for allowing us to participate in the care of this patient. The impression and plan of care has been dictated by Yadira Goff, Nurse Practitioner as directed. Dr. Pedro MD I have performed a history and physical examination and medical decision making of this patient, discussed the same with the dictator, and agree with the dictators assessment and plan as written, documented as a scribe. Based on total visit time, I have performed more than 50% of this visit. Patient Condition at Discharge: Good Plan - Discharge Summary New Discharge Prescriptions: New Prasugrel [Effient] 10 mg PO DAILY #90 tab Apixaban [Eliquis] 5 mg PO BID #60 tab Metoprolol Tartrate [Lopressor] 50 mg PO BID #180 tab lisinopriL [Zestril] 10 mg PO BID #180 tab Amiodarone [Cordarone] 400 mg PO BID #180 tab Atorvastatin [Lipitor] 80 mg PO HS #90 tab Continue Nitroglycerin Sl Tabs [Nitrostat] 0.4 mg SL Q5M PRN PRN Reason: Chest Pain Aspirin EC [Ecotrin Low Dose] 81 mg PO DAILY Ezetimibe [Zetia] 10 mg PO DAILY 30 Days #30 tab Discontinued lisinopriL [Zestril] 20 mg PO DAILY Metoprolol Tartrate [Lopressor] 12.5 mg PO BID Discharge Medication List Aspirin EC [Ecotrin Low Dose] 81 mg PO DAILY 08/24/21 [History] Ezetimibe [Zetia] 10 mg PO DAILY 30 Days #30 tab 08/25/21 [Rx] Nitroglycerin Sl Tabs [Nitrostat] 0.4 mg SL Q5M PRN 10/17/22 [History] Amiodarone [Cordarone] 400 mg PO BID #180 tab 02/09/23 [Rx] Apixaban [Eliquis] 5 mg PO BID #60 tab 02/09/23 [Rx] Atorvastatin [Lipitor] 80 mg PO HS #90 tab 02/09/23 [Rx] Metoprolol Tartrate [Lopressor] 50 mg PO BID #180 tab 02/09/23 [Rx] Prasugrel [Effient] 10 mg PO DAILY #90 tab 02/09/23 [Rx] lisinopriL [Zestril] 10 mg PO BID #180 tab 02/09/23 [Rx] Follow up Appointment(s)/Referral(s): Chucky Cosme MD [STAFF PHYSICIAN] - 02/11/23 10:00 am Ilya Barraza DO [Primary Care Provider] - 02/12/23 10:30 am Ambulatory/Diagnostic Orders: Basic Metabolic Panel [LAB.AMB] Time Frame: 3 Days, Location: None Selected Complete Blood Count w/diff [LAB.AMB] Time Frame: 3 Days, Location: None Selected Patient Instructions/Handouts: Heart Attack (DC) Activity/Diet/Wound Care/Special Instructions: Recommend to continue triple therapy for one month with eliquis BID, Aspirin 81 mg daily, effient 10 mg daily. Patient to continue wearing lifevest as discussed and follow up closely with cardiology on discharge. Discharge Disposition: HOME SELF-CARE
== END 2023-02-09 16:50 | disposition home or self-care (01) | DRG 246 ==
LOC: EC 09:41 → 2SICU 10:01 → 3SCARD 02-08 22:44
PROVIDERS: ADMIT Internal Medicine; ATTEND Internal Medicine
PROC: B2111ZZ Fluoroscopy of Multiple Coronary Arteries using Low Osmolar Contrast (ICD-10-PCS; principal; 2023-02-06 09:49)
PROC: 027035Z Dilation of Coronary Artery, One Artery with Two Drug-eluting Intraluminal Devices, Percutaneous Approach (ICD-10-PCS; principal; 2023-02-06 09:49)
PROC: B241ZZ3 Ultrasonography of Multiple Coronary Arteries, Intravascular (ICD-10-PCS; principal; 2023-02-06 09:49)
PROC: 4A023N7 Measurement of Cardiac Sampling and Pressure, Left Heart, Percutaneous Approach (ICD-10-PCS; principal; 2023-02-06 09:49)
DX: T82.855A Stenosis of coronary artery stent, initial encounter (principal); I21.19 ST elevation (STEMI) myocardial infarction involving other coronary artery of inferior wall; I50.21 Acute systolic (congestive) heart failure; I44.2 Atrioventricular block, complete; I48.19 Other persistent atrial fibrillation; I11.0 Hypertensive heart disease with heart failure; Z68.31 Body mass index [BMI] 31.0-31.9, adult; E66.9 Obesity, unspecified; F10.10 Alcohol abuse, uncomplicated; R30.0 Dysuria; I25.119 Atherosclerotic heart disease of native coronary artery with unspecified angina pectoris; M19.90 Unspecified osteoarthritis, unspecified site; E78.5 Hyperlipidemia, unspecified; I25.5 Ischemic cardiomyopathy; I49.3 Ventricular premature depolarization; Y71.2 Prosthetic and other implants, materials and accessory cardiovascular devices associated with adverse incidents; Z87.891 Personal history of nicotine dependence; I25.2 Old myocardial infarction; Z79.899 Other long term (current) drug therapy; Z79.02 Long term (current) use of antithrombotics/antiplatelets; Z79.82 Long term (current) use of aspirin; Z28.311 Partially vaccinated for COVID-19
CPT/HCPCS: 80048; 80053; 80061; 81003; 82550; 82553; 83735; 84484; 85025; 85610; 85730; 92978; 93005; 93306; 93458; 96374; 96375; 99291

== ENCOUNTER → 2023-10-05 | Outpatient (CLI) | payer OTHER ==
[2023-10-05 16:04] LABS: ALT 66 U/L (10-49); AST 45 U/L (14-35); LDL Cholesterol,Calculated 86.1 mg/dL (0.0-131.0)
== END | disposition home or self-care (01) ==
LOC: LABWHC1 08:38
PROVIDERS: ATTEND Internal Medicine Interventional Cardiology
DX: E78.00 Pure hypercholesterolemia, unspecified (principal)
CPT/HCPCS: 36415; 80061; 84450; 84460

== ENCOUNTER → 2024-03-22 | Outpatient (CLI) | payer OTHER ==
--- NOTE | 2024-03-22 18:43 | CT ---
EXAMINATION TYPE: CT angio chest CT DLP: 967.60 mGycm, Automated exposure control for dose reduction was used. DATE OF EXAM: 03/22/2024 8:46 AM COMPARISON: CTA chest 01/17/2015 CLINICAL INDICATION:Male, 58 years old with history of THORACIC AORTIC ANEURYSM, WITHOUT RUPTURE, UNS PECIFIED; Thoracic aortic aneurysm w/o rupture TECHNIQUE/CONTRAST: CTA scan of the thorax is performed with IV Contrast, patient injected with and without 100 mL of Iso elliott 370, thoracic aneurysm protocol. 3-D images are created and reviewed. FINDINGS: Lungs/Pleura: No evidence of focal consolidation, pleural effusion or pneumothorax. Mild centrilobula r emphysematous changes. Airway: Large airways are patent. Heart: Heart is within normal limits for size. Coronary artery calcifications and/or stents identifie d. Vasculature: The aortic root measures up to 4.3 cm, previously 4.5 cm. The ascending thoracic aorta m easures up to 4.3 cm, previously 4.0 cm. The descending thoracic aorta measures up to 2.9 cm, previou s of 2.7 cm. No evidence of intramural hematoma or dissection. No evidence of pulmonary embolism. Sep arate origin of the left vertebral artery from the aorta. Mediastinum: No gross evidence of adenopathy. Musculoskeletal: No acute osseous abnormalities Soft Tissues: Unremarkable. Lower neck: No significant findings. Upper Abdomen: Stable enlarged gastrohepatic ligament lymph nodes measuring up to 2.8 cm dating back to 2014 and considered benign. IMPRESSION: 1. Marginal increase in size of mild aneurysmal dilatation of the thoracic aorta from prior examinat ion in 2014. 2. Mild COPD changes.
== END | disposition home or self-care (01) ==
LOC: RADCTMAIN 07:47
PROVIDERS: ATTEND Internal Medicine Interventional Cardiology
DX: I71.20 Thoracic aortic aneurysm, without rupture, unspecified (principal); J44.9 Chronic obstructive pulmonary disease, unspecified
CPT/HCPCS: 71275; Q9967

== ENCOUNTER → 2024-03-22 | Outpatient (CLI) | payer OTHER ==
[2024-03-22 15:50] LABS: ALT 62 U/L (10-49); AST 44 U/L (14-35); Chol/HDL Ratio 3.17 Ratio; VLDL Calculation 16.16 mg/dL (5.00-40.00)
== END | disposition home or self-care (01) ==
LOC: LABWHC1 08:29
PROVIDERS: ATTEND Internal Medicine Interventional Cardiology
DX: E78.00 Pure hypercholesterolemia, unspecified (principal)
CPT/HCPCS: 36415; 80061; 84450; 84460

== ENCOUNTER 2025-04-30 05:45 | Day surgery (SDC) | payer OTHER ==
[2025-04-30] MEDS ORDERED: ALPRAZolam 0.5 MG TAB PO PRN (05:54)
[2025-04-30] MEDS ORDERED: HEPARIN SODIUM,PORCINE (1 ML) 2,500 UNIT in SODIUM CHLORIDE 0.9% 250 ML IRRIGATION PRN (05:54)
[2025-04-30] MEDS ORDERED: ALPRAZolam 0.25 MG TAB PO PRN (05:54)
[2025-04-30] MEDS ORDERED: HEPARIN SODIUM,PORCINE 10,000 UNIT in SODIUM CHLORIDE 0.9% 1,000 ML IRRIGATION PRN (05:54)
[2025-04-30] MEDS ORDERED: NITROGLYCERIN SL TABS 0.4 MG TAB SUBLINGUAL PRN (05:54)
[2025-04-30] MEDS: IV FLUID CONTINUATION 1,000 ML IV ONE (06:15)
[2025-04-30] MEDS: ASPIRIN 325 MG TAB PO STA (06:34)
[2025-04-30] MEDS: SODIUM CHLORIDE 0.9% 1,000 ML in EMPTY BAG 1 BAG IV SCH (06:34)
[2025-04-30] MEDS: ATORVASTATIN 80 MG TAB PO STA (06:34)
[2025-04-30 06:41] LABS: Basophils # (A) 0.04 10*3/uL (0.00-0.10); Basophils % (A) 0.4 %; Eosinophils # (A) 0.23 10*3/uL (0.04-0.35); Eosinophils % (A) 2.5 %; HCT 44.3 % (39.6-50.0); HGB 15.2 g/dL (13.0-17.0); Lymphocytes # (A) 1.45 10*3/uL (0.90-5.00); Lymphocytes % (A) 16.1 %; MCH 31.4 pg (27.0-32.0); MCHC 34.3 g/dL (32.0-37.0); MCV 91.5 fL (80.0-97.0); Mean Platelet Volume 9.3 fL (9.5-12.2); Monocytes # (A) 0.79 10*3/uL (0.20-1.00); Monocytes % (A) 8.7 %; Neutrophils % (A) 72.1 %; Platelet Count 251 10*3/uL (140-440); RBC 4.84 10*6/uL (4.40-5.60); WBC 9.03 10*3/uL (4.50-10.00)
[2025-04-30 06:48] VITALS: RESP 16; TEMP 97.7
[2025-04-30] MEDS: VERAPAMIL SYRINGE (5 MG/10 ML) INTRAARTER ONE (08:00)
[2025-04-30] MEDS: LIDOCAINE 1% INJ 10MG/ML (20 ML MDV) SQ ONE (08:00)
[2025-04-30] MEDS: MIDAZOLAM 2 MG/2 ML VIAL IVP ONE ×2 (08:00→08:09)
[2025-04-30] MEDS: fentaNYL (PF) 50 MCG/1 ML VIAL IVP ONE (08:00)
[2025-04-30] MEDS: HEPARIN SODIUM 1,000 UN/ML (10ML VL) IVP ONE (08:03)
[2025-04-30] MEDS ORDERED: RX INFO: IV CONTRAST WAS GIVEN 1 EACH MISC MISCELLANE PRN (08:13)
--- NOTE | 2025-04-30 08:15 | P.PCN ---
Date of Procedure: 04/30/25 Operative Findings: CARDIAC CATHETERIZATION PERFORMING PHYSICIAN: Abelardo Garcia MD, RPVI PROCEDURE PERFORMED: 1. Selective right and left coronary angiogram 2. Left heart catheterization 3. Ultrasound-guided access of the right radial artery INDICATION: Chest discomfort concerning for angina COMPLICATION: None APPROACH: Right radial artery LEVEL OF SEDATION: Moderate with a sedation length of 13 minutes PROCEDURE DESCRIPTION: After obtaining an informed consent, the patient was brought to cardiac labor utilization superintendent. Local anesthesia was performed using lidocaine subcutaneously. The right radial artery was cannulated using Seldinger technique, under ultrasound guidance, the guidewire passed easily, following that we advanced a 5-Japanese sheath dilator assembly, the wire and dilator were removed and sheath was flushed. Following that, 2 mg of verapamil along with 5000 unit heparin were given. Selective right and left coronary angiogram using a 5-Japanese JR4 and JL 3.5 catheters. Following that we did left heart catheterization using 5-Japanese pigtail catheter. The procedure was completed there was no complication. SELECTIVE CORONARY ANGIOGRAM: The right coronary artery: Large caliber vessel and a dominant vessel with patent stent in the RCA Left main: Is angiographically normal The left circumflex: Caliber vessel nondominant vessel with no evidence of high-grade stenosis The left anterior descending artery: Large caliber vessel with mild to moderate diffuse disease with no evidence of high-grade stenosis HEMODYNAMICS: LVEDP was 14 mmHg with no significant gradient across aortic valve CONCLUSION: 1. Mild to moderate disease involving the RCA and LAD with no evidence of high- grade stenosis 2. Mild left-sided filling pressure POSTPROCEDURE MANAGEMENT: Medical treatment
[2025-04-30] MEDS: SODIUM CHLORIDE 0.9% 1,000 ML IV SCH (08:20)
[2025-04-30] MEDS: IOPAMIDOL-370 100ML BTL INTRATHECA ONE (08:20)
[2025-04-30] MEDS: HEPARIN SODIUM,PORCINE (1 ML) 2,500 UNIT in SODIUM CHLORIDE 0.9% 250 ML IRRIGATION ONE (08:21)
[2025-04-30] MEDS: HEPARIN SODIUM,PORCINE 10,000 UNIT in SODIUM CHLORIDE 0.9% 1,000 ML IRRIGATION ONE (08:21)
[2025-04-30 11:33] VITALS: BP 142/74; PULSE 58
== END 2025-04-30 11:30 | disposition home or self-care (01) ==
LOC: CATHCVL 05:45
PROVIDERS: ATTEND Internal Medicine Interventional Cardiology
DX: I25.10 Atherosclerotic heart disease of native coronary artery without angina pectoris (principal); I48.0 Paroxysmal atrial fibrillation; I77.819 Aortic ectasia, unspecified site; I25.5 Ischemic cardiomyopathy; I38 Endocarditis, valve unspecified; I10 Essential (primary) hypertension; E78.5 Hyperlipidemia, unspecified; Z72.0 Tobacco use; Z79.82 Long term (current) use of aspirin; Z79.02 Long term (current) use of antithrombotics/antiplatelets; Z79.899 Other long term (current) drug therapy
CPT/HCPCS: 93458; 85025; 99152; C1769; C1894; C1887; J2250; J1644 ×3; J2003; Q9967; J3010